=== PATIENT | female | born 1950 | race Caucasian/White ===

== ENCOUNTER → 2016-08-17 | Outpatient (CLI) | payer MEDICARE, OTHER ==
[2016-08-17 12:59] LABS: APPEARANCE,URINE CLEAR; BILIRUBIN,URINE NEGATIVE (NEGATIVE); GLUCOSE, URINE NEGATIVE (NEGATIVE); KETONES,URINE NEGATIVE (NEGATIVE); LEUKOCYTE ESTERASE,URINE NEGATIVE (NEGATIVE); NITRITE,URINE NEGATIVE (NEGATIVE); PROTEIN,URINE NEGATIVE (NEGATIVE); URINE SPECIFIC GRAVITY 1.009; UROBILINOGEN,URINE NEGATIVE mg/dL (<2.0)
[2016-08-17 13:02] LABS: HEMATOCRIT 37.5 % (36.0-47.0); HEMOGLOBIN 11.9 g/dL (12.0-15.5); HGB HCT DIFFERENCE -1.8; MEAN CORPUSCULAR HEMOGLOBIN 26.8 pg (27.0-33.4); MEAN CORPUSCULAR HGB CONC 31.7 g/dL (32.0-36.0); MEAN CORPUSCULAR VOLUME 84 fl (80-97); RED BLOOD COUNT 4.45 10^6/uL (3.72-5.28); RED CELL DISTRIBUTION WIDTH 14.6 % (11.5-14.0); WHITE BLOOD COUNT 11.3 10^3/uL (4.0-10.5)
[2016-08-17 13:22] LABS: ANION GAP 12 (5-19); BLOOD UREA NITROGEN 32 mg/dL (7-20); CALCIUM 10.1 mg/dL (8.4-10.2); CARBON DIOXIDE 31 mmol/L (22-30); CHLORIDE 98 mmol/L (98-107); CREATININE RESULT 1.61 mg/dL (0.52-1.25); GLUCOSE 132 mg/dL (75-110); POTASSIUM 4.6 mmol/L (3.6-5.0); SODIUM 140.7 mmol/L (137-145)
== END ==
LOC: OD 11:52
PROVIDERS: ATTEND Internal Medicine Nephrology
DX: E11.22 Type 2 diabetes mellitus with diabetic chronic kidney disease (principal); N18.3 Chronic kidney disease, stage 3 (moderate); I50.9 Heart failure, unspecified; E87.5 Hyperkalemia
CPT/HCPCS: 36415; 80048; 81001; 85027

== ENCOUNTER → 2016-09-25 | Outpatient (CLI) | payer MEDICARE, OTHER ==
[2016-09-25 10:32] LABS: ANION GAP 17 (5-19); BLOOD UREA NITROGEN 19 mg/dL (7-20); CALCIUM 9.5 mg/dL (8.4-10.2); CARBON DIOXIDE 31 mmol/L (22-30); CHLORIDE 100 mmol/L (98-107); CREATININE RESULT 1.07 mg/dL (0.52-1.25); GLUCOSE 153 mg/dL (75-110); SODIUM 147.6 mmol/L (137-145)
[2016-09-25 10:34] LABS: POTASSIUM 4.4 mmol/L (3.6-5.0)
== END ==
LOC: OD 09:27
PROVIDERS: ATTEND Internal Medicine Nephrology
DX: I50.9 Heart failure, unspecified (principal); N18.3 Chronic kidney disease, stage 3 (moderate); E11.9 Type 2 diabetes mellitus without complications; E87.5 Hyperkalemia
CPT/HCPCS: 36415; 80048

== ENCOUNTER → 2016-09-30 | Outpatient (CLI) | payer MEDICARE, OTHER ==
[2016-09-30 11:31] LABS: ANION GAP 15 (5-19); BLOOD UREA NITROGEN 21 mg/dL (7-20); CALCIUM 9.8 mg/dL (8.4-10.2); CARBON DIOXIDE 34 mmol/L (22-30); CHLORIDE 96 mmol/L (98-107); CREATININE RESULT 1.15 mg/dL (0.52-1.25); GLUCOSE 151 mg/dL (75-110); POTASSIUM 4.3 mmol/L (3.6-5.0); SODIUM 144.6 mmol/L (137-145)
== END ==
LOC: OD 10:34
PROVIDERS: ATTEND Internal Medicine Nephrology
DX: E87.0 Hyperosmolality and hypernatremia (principal)
CPT/HCPCS: 36415; 80048

== ENCOUNTER → 2017-03-09 | Outpatient (CLI) | payer MEDICARE, OTHER ==
[2017-03-09 14:49] LABS: APPEARANCE,URINE CLEAR; BILIRUBIN,URINE NEGATIVE (NEGATIVE); GLUCOSE, URINE NEGATIVE (NEGATIVE); KETONES,URINE NEGATIVE (NEGATIVE); LEUKOCYTE ESTERASE,URINE NEGATIVE (NEGATIVE); NITRITE,URINE NEGATIVE (NEGATIVE); PROTEIN,URINE NEGATIVE (NEGATIVE); URINE SPECIFIC GRAVITY 1.004; UROBILINOGEN,URINE NEGATIVE mg/dL (<2.0)
[2017-03-09 14:50] LABS: HEMATOCRIT 37.7 % (36.0-47.0); HEMOGLOBIN 12.4 g/dL (12.0-15.5); HGB HCT DIFFERENCE -0.5; MEAN CORPUSCULAR HGB CONC 32.7 g/dL (32.0-36.0); MEAN CORPUSCULAR VOLUME 83 fl (80-97); RED BLOOD COUNT 4.57 10^6/uL (3.72-5.28); RED CELL DISTRIBUTION WIDTH 15.3 % (11.5-14.0); WHITE BLOOD COUNT 9.8 10^3/uL (4.0-10.5)
[2017-03-09 15:22] LABS: ANION GAP 12 (5-19); BLOOD UREA NITROGEN 30 mg/dL (7-20); CALCIUM 9.9 mg/dL (8.4-10.2); CARBON DIOXIDE 29 mmol/L (22-30); CHLORIDE 100 mmol/L (98-107); CREATININE RESULT 1.33 mg/dL (0.52-1.25); GLUCOSE 172 mg/dL (75-110); MAGNESIUM 1.7 mg/dL (1.6-2.3); POTASSIUM 4.2 mmol/L (3.6-5.0); SODIUM 140.8 mmol/L (137-145)
== END ==
LOC: OD 13:40
PROVIDERS: ATTEND Internal Medicine Nephrology
DX: I12.9 Hypertensive chronic kidney disease with stage 1 through stage 4 chronic kidney disease, or unspecified chronic kidney disease (principal); N18.3 Chronic kidney disease, stage 3 (moderate); E11.9 Type 2 diabetes mellitus without complications; E87.5 Hyperkalemia
CPT/HCPCS: 36415; 80048; 81001; 83735; 85027

== ENCOUNTER → 2017-07-28 | Outpatient (CLI) | payer MEDICARE, OTHER ==
[2017-07-28 12:54] LABS: HEMATOCRIT 37.2 % (36.0-47.0); HEMOGLOBIN 12.2 g/dL (12.0-15.5); MEAN CORPUSCULAR HEMOGLOBIN 27.4 pg (27.0-33.4); MEAN CORPUSCULAR HGB CONC 32.9 g/dL (32.0-36.0); MEAN CORPUSCULAR VOLUME 83 fl (80-97); PLATELET COUNT 191 10^3/uL (150-450); RED BLOOD COUNT 4.46 10^6/uL (3.72-5.28); RED CELL DISTRIBUTION WIDTH 14.6 % (11.5-14.0); WHITE BLOOD COUNT 11.2 10^3/uL (4.0-10.5)
[2017-07-28 13:14] LABS: ANION GAP 13 (5-19); BLOOD UREA NITROGEN 42 mg/dL (7-20); CALCIUM 9.9 mg/dL (8.4-10.2); CARBON DIOXIDE 31 mmol/L (22-30); CHLORIDE 96 mmol/L (98-107); GLUCOSE 113 mg/dL (75-110); MAGNESIUM 1.5 mg/dL (1.6-2.3); POTASSIUM 4.2 mmol/L (3.6-5.0); SODIUM 139.6 mmol/L (137-145)
== END ==
LOC: OD 11:44
PROVIDERS: ATTEND Internal Medicine Nephrology
DX: N18.3 Chronic kidney disease, stage 3 (moderate) (principal); I50.9 Heart failure, unspecified; E11.9 Type 2 diabetes mellitus without complications; E87.5 Hyperkalemia
CPT/HCPCS: 36415; 80048; 83735; 85027

== ENCOUNTER 2017-08-04 11:07 | Emergency (ER) | payer MEDICARE, OTHER ==
[2017-08-04] MEDS ORDERED: ASPIRIN 81 MG TABLET, CHEWABLE PO ONE (11:10)
[2017-08-04 11:30] LABS: ABSOLUTE BASOPHILS # (AUTO) 0.1 10^3/uL (0.0-0.2); ABSOLUTE EOSINOPHILS # (AUTO) 0.4 10^3/uL (0.0-0.6); ABSOLUTE LYMPHOCYTES (AUTO) 3.6 10^3/uL (0.5-4.7); ABSOLUTE MONOCYTES (AUTO) 0.7 10^3/uL (0.1-1.4); ABSOLUTE NEUT (AUTO) 5.8 10^3/uL (1.7-8.2); BASOPHILS % (AUTO) 0.7 % (0-2); EOSINOPHILS % (AUTO) 3.8 % (0-6); HEMATOCRIT 38.1 % (36.0-47.0); HEMOGLOBIN 12.2 g/dL (12.0-15.5); LYMPHOCYTES % (AUTO) 34.1 % (13-45); MEAN CORPUSCULAR HEMOGLOBIN 27.2 pg (27.0-33.4); MEAN CORPUSCULAR HGB CONC 31.9 g/dL (32.0-36.0); MEAN CORPUSCULAR VOLUME 85 fl (80-97); MONOCYTES % (AUTO) 6.5 % (3-13); PLATELET COUNT 184 10^3/uL (150-450); RED BLOOD COUNT 4.47 10^6/uL (3.72-5.28); RED CELL DISTRIBUTION WIDTH 14.9 % (11.5-14.0); SEGMENTED NEUTROPHILS % (AUTO) 54.9 % (42-78); TOTAL CELLS COUNTED % (AUTO) 100 %; WHITE BLOOD COUNT 10.5 10^3/uL (4.0-10.5)
[2017-08-04 11:47] LABS: ALANINE AMINOTRANSFERASE 19 U/L (9-52); ALBUMIN 4.3 g/dL (3.5-5.0); ALKALINE PHOSPHATASE 100 U/L (38-126); ANION GAP 11 (5-19); ASPARTATE AMINO TRANSFERASE 16 U/L (14-36); BILIRUBIN,DIRECT 0.4 mg/dL (0.0-0.4); BILIRUBIN,TOTAL 0.4 mg/dL (0.2-1.3); BLOOD UREA NITROGEN 28 mg/dL (7-20); CALCIUM 10.1 mg/dL (8.4-10.2); CARBON DIOXIDE 34 mmol/L (22-30); CHLORIDE 99 mmol/L (98-107); CREATINE KINASE 54 U/L (30-135); GLUCOSE 122 mg/dL (75-110); POTASSIUM 4.6 mmol/L (3.6-5.0); SODIUM 143.9 mmol/L (137-145); TOTAL PROTEIN 7.3 g/dL (6.3-8.2)
[2017-08-04 12:01] LABS: TROPONIN I < 0.012 ng/mL
--- NOTE | 2017-08-04 12:05 | RADIOLOGY REPORT (SQ) ---
EXAM DESCRIPTION: CHEST SINGLE VIEW COMPLETED DATE/TIME: 08/04/2017 11:37 am REASON FOR STUDY: chest pain COMPARISON: September 2015 EXAM PARAMETERS: NUMBER OF VIEWS: One view. TECHNIQUE: Single frontal radiographic view of the chest acquired. RADIATION DOSE: NA LIMITATIONS: Patient is slightly rotated on the current study. FINDINGS: LUNGS AND PLEURA: There is ill-defined increased density in the right perihilar region in right lower lung field which may be related to asymmetric overlying soft tissues rather than represen ting a true pneumonic infiltrate. Clinical correlation is recommended however. Remaining lung field s are clear. No pleural effusions are identified. The previously described chronic appearing change s in the lung apices appears stable. MEDIASTINUM AND HILAR STRUCTURES: No masses. Contour normal. HEART AND VASCULAR STRUCTURES: The configuration of the heart mediastinal structures is unchanged. BONES: No acute findings. HARDWARE: None in the chest. OTHER: Some elevation of the left hemidiaphragm is seen. IMPRESSION: Ill-defined increased density in the right perihilar region in the right lower lung fiel d as noted above which may be related to asymmetric overlying soft tissues rather than representing a true pneumonic infiltrate. Clinical correlation is recommended however. Remaining lung fleming are clear. Other findings as noted above. TECHNICAL DOCUMENTATION: JOB ID: [id number] [employer]- All Rights Reserved
[2017-08-04] MEDS ORDERED: IPRATROPIUM/ALBUTEROL 0.5-2.5 MG/3 ML AMPUL NEB ONE (12:11)
[2017-08-04] MEDS ORDERED: LEVOFLOXACIN 500 MG TABLET PO ONE (13:27)
[2017-08-04] MEDS ORDERED: PREDNISONE 20 MG TABLET PO ONE (13:29)
--- NOTE | 2017-08-04 14:15 | ER Document Report ---
ED General - General Chief Complaint: Shortness Of Breath Stated Complaint: CHEST PAIN Time Seen by Provider: 08/04/17 12:11 TRAVEL OUTSIDE OF THE [place] IN LAST 30 DAYS: No - HPI Patient complains to provider of: Shortness of breath and chest pain Notes: Patient coming in for evaluation shortness of breath and chest pain. Patient states chest pain started early this morning right side of the chest no radiation patient states shortness of breath ongoing increasing over the last 3 days. Patient was referred to the ER by lead systems architect Dr. Jair saucedo. Patient states compliant with her medications patient states cough no fevers at home. Patient does have history of COPD is on chronic oxygen therapy states that she continues to wear 2 L at home. Denies any history of having to increase this. Patient states cough is nonproductive. No recent travel no fevers no chills no nausea no vomiting. - Related Data Allergies/Adverse Reactions: DUST Allergy (Uncoded 02/14/15 10:12) GRASS Allergy (Uncoded 02/14/15 10:12) Past Medical History - Social History Smoking Status: Unknown if Ever Smoked Family History: Other - No early cardiac in the family. Patient has suicidal ideation: No Patient has homicidal ideation: No - Past Medical History Cardiac Medical History: Reports: Hx Hypertension Denies: Hx Heart Attack Pulmonary Medical History: Reports: Hx COPD Denies: Hx Asthma Neurological Medical History: Denies: Hx Cerebrovascular Accident, Hx Seizures Endocrine Medical History: Reports: Hx Diabetes Mellitus Type 2 - borderline diabetic Renal/ Medical History: Denies: Hx Peritoneal Dialysis GI Medical History: Reports: Hx Gastroesophageal Reflux Disease. Denies: Hx Hepatitis, Hx Hiatal Hernia, Hx Ulcer Psychiatric Medical History: Reports: Hx Depression Infectious Medical History: Denies: Hx Hepatitis Past Surgical History: Reports: Hx Cholecystectomy, Hx Hysterectomy. Denies: Hx Mastectomy, Hx Open Heart Surgery, Hx Pacemaker - Immunizations Hx Diphtheria, Pertussis, Tetanus Vaccination: - unknown Hx Pneumococcal Vaccination: 06/27/13 Review of Systems - Review of Systems Constitutional: No symptoms reported EENT: No symptoms reported Cardiovascular: Chest pain Respiratory: Cough, Short of breath, Wheezing Gastrointestinal: No symptoms reported Genitourinary: No symptoms reported Female Genitourinary: No symptoms reported Musculoskeletal: No symptoms reported Skin: No symptoms reported Hematologic/Lymphatic: No symptoms reported Neurological/Psychological: No symptoms reported -: Yes All other systems reviewed and negative Physical Exam - Vital signs Vitals: Resp Pulse Ox 17 99 08/04/17 11:24 08/04/17 11:24 Interpretation: Normal - General General appearance: Appears well, Alert - HEENT Head: Normocephalic, Atraumatic Eyes: Normal Pupils: PERRL - Respiratory Respiratory status: No respiratory distress Chest status: Nontender Breath sounds: Rhonchi, Wheezing Chest palpation: Normal - Cardiovascular Rhythm: Regular Heart sounds: Normal auscultation Murmur: No - Abdominal Inspection: Normal Distension: No distension Bowel sounds: Normal Tenderness: Nontender Organomegaly: No organomegaly - Back Back: Normal, Nontender - Extremities General upper extremity: Normal inspection, Nontender, Normal color, Normal ROM , Normal temperature General lower extremity: Normal inspection, Nontender, Normal color, Normal ROM , Normal temperature, Normal weight bearing. No: Mikey's sign - Neurological Neuro grossly intact: Yes Cognition: Normal Orientation: AAOx4 Sarah Coma Scale Eye Opening: Spontaneous Sarah Coma Scale Verbal: Oriented Sarah Coma Scale Motor: Obeys Commands Sarah Coma Scale Total: 15 Speech: Normal Motor strength normal: LUE, RUE, LLE, RLE Sensory: Normal - Psychological Associated symptoms: Normal affect, Normal mood - Skin Skin Temperature: Warm Skin Moisture: Dry Skin Color: Normal Course - Re-evaluation Re-evalutation: 08/04/17 16:05 Chest x-ray shows possible pneumonia on the right side which would be congruent the patient's right-sided chest pain. Will start patient on Levaquin. Also will start patient on prednisone was patient's was wheezing. Wheezing has improved. No signs of hypoxia with patient on her home dose of oxygen. Patient was to be in good candidate for outpatient treatment of her pneumonia. Patient is encouraged to return to the ER symptoms worsen or follow-up with her PCP. - Vital Signs Vital signs: Temp Pulse Resp BP Pulse Ox 15 90/46 L 98 08/04/17 14:35 08/04/17 14:35 08/04/17 14:35 - Laboratory Result Diagrams: 08/04/17 10:55 08/04/17 10:55 Laboratory results interpreted by me: 08/04/17 08/04/17 10:55 10:55 MCHC 31.9 L RDW 14.9 H Carbon Dioxide 34 H BUN 28 H Creatinine 1.34 H Est GFR ( Amer) 47 L Est GFR (Non-Af Amer) 39 L Glucose 122 H Discharge - Discharge Clinical Impression: PNA (pneumonia) Qualifiers: Pneumonia type: due to unspecified organism Laterality: right Lung location: middle lobe of lung Qualified Code(s): J18.1 - Lobar pneumonia, unspecified organism COPD (chronic obstructive pulmonary disease) Qualifiers: COPD type: unspecified COPD Qualified Code(s): J44.9 - Chronic obstructive pulmonary disease, unspecified Condition: Good Disposition: HOME, SELF-CARE Instructions: Chronic Obstructive Lung Disease ([facility]), Pneumonia ([facility]) Additional Instructions: Your laboratory studies today chest x-ray consistent with pneumonia. There is no signs of any cardiac ischemia or cardiac damage. Please continue to wear oxygen at home. Please take antibiotics as prescribed continue your nebulizer treatments and/or use of your inhalers. I will place her on some oral steroids for the next few days. Return to ER symptoms worsen follow-up with your primary care physician. Prescriptions: Levofloxacin 500 mg PO DAILY 9 Days tablet Prednisone [Deltasone 20 mg Tablet] 3 tab PO DAILY 5 Days tablet Referrals: MICHEL SLATER NP [Primary Care Provider] - Follow up as needed
[2017-08-04 14:39] VITALS: BP 90/46
--- NOTE | 2017-08-04 22:36 | EKG REPORT ---
SEVERITY:- NORMAL ECG - SINUS RHYTHM : Confirmed by: Meño Anderson 04-Aug-2017 22:35:40
== END 2017-08-04 14:39 | disposition home or self-care (01) ==
LOC: ER 11:07
DX: J44.0 Chronic obstructive pulmonary disease with (acute) lower respiratory infection (principal); J18.1 Lobar pneumonia, unspecified organism; Z99.81 Dependence on supplemental oxygen; Z91.048 Other nonmedicinal substance allergy status; I10 Essential (primary) hypertension
CPT/HCPCS: 93005; 94640; 99285; 36415; 82553; 82550; 85025; 80053; 84484; 83880; 71045; 93010; A9270 ×3; J7512; J7620

== ENCOUNTER → 2018-09-26 | Outpatient (CLI) | payer MEDICARE, OTHER ==
[2018-09-26 11:31] LABS: ABSOLUTE BASOPHILS # (AUTO) 0.1 10^3/uL (0.0-0.2); ABSOLUTE EOSINOPHILS # (AUTO) 0.3 10^3/uL (0.0-0.6); ABSOLUTE LYMPHOCYTES (AUTO) 3.1 10^3/uL (0.5-4.7); ABSOLUTE MONOCYTES (AUTO) 0.8 10^3/uL (0.1-1.4); ABSOLUTE NEUT (AUTO) 8.6 10^3/uL (1.7-8.2); BASOPHILS % (AUTO) 0.7 % (0-2); EOSINOPHILS % (AUTO) 2.6 % (0-6); HEMATOCRIT 37.9 % (36.0-47.0); HEMOGLOBIN 12.1 g/dL (12.0-15.5); LYMPHOCYTES % (AUTO) 24.1 % (13-45); MEAN CORPUSCULAR HEMOGLOBIN 27.3 pg (27.0-33.4); MEAN CORPUSCULAR VOLUME 85 fl (80-97); MONOCYTES % (AUTO) 5.9 % (3-13); PLATELET COUNT 195 10^3/uL (150-450); RED BLOOD COUNT 4.44 10^6/uL (3.72-5.28); SEGMENTED NEUTROPHILS % (AUTO) 66.7 % (42-78); TOTAL CELLS COUNTED % (AUTO) 100 %; WHITE BLOOD COUNT 12.9 10^3/uL (4.0-10.5)
[2018-09-26 11:52] LABS: ANION GAP 10 (5-19); BLOOD UREA NITROGEN 26 mg/dL (7-20); CALCIUM 9.9 mg/dL (8.4-10.2); CARBON DIOXIDE 32 mmol/L (22-30); CHLORIDE 99 mmol/L (98-107); GLUCOSE 121 mg/dL (75-110); PHOSPHORUS 3.7 mg/dL (2.5-4.5); POTASSIUM 4.2 mmol/L (3.6-5.0)
[2018-09-26 12:27] LABS: APPEARANCE,URINE SLIGHTLY-CLOUDY; BILIRUBIN,URINE NEGATIVE (NEGATIVE); COLOR,URINE YELLOW; GLUCOSE, URINE NEGATIVE (NEGATIVE); KETONES,URINE NEGATIVE (NEGATIVE); LEUKOCYTE ESTERASE,URINE TRACE (NEGATIVE); NITRITE,URINE NEGATIVE (NEGATIVE); PROTEIN,URINE NEGATIVE (NEGATIVE); URINE SPECIFIC GRAVITY 1.019
== END ==
LOC: OD 10:57
PROVIDERS: ATTEND Internal Medicine Nephrology
DX: N18.3 Chronic kidney disease, stage 3 (moderate) (principal); I50.9 Heart failure, unspecified; E11.9 Type 2 diabetes mellitus without complications; E87.5 Hyperkalemia
CPT/HCPCS: 36415; 80048; 81001; 83735; 83970; 84100; 85025

== ENCOUNTER → 2018-10-25 | Outpatient (CLI) | payer MEDICARE, OTHER ==
[2018-10-25 14:20] LABS: ABSOLUTE BASOPHILS # (AUTO) 0.1 10^3/uL (0.0-0.2); ABSOLUTE EOSINOPHILS # (AUTO) 0.3 10^3/uL (0.0-0.6); ABSOLUTE LYMPHOCYTES (AUTO) 2.5 10^3/uL (0.5-4.7); ABSOLUTE MONOCYTES (AUTO) 0.5 10^3/uL (0.1-1.4); ABSOLUTE NEUT (AUTO) 4.9 10^3/uL (1.7-8.2); BASOPHILS % (AUTO) 0.9 % (0-2); EOSINOPHILS % (AUTO) 4.1 % (0-6); HEMATOCRIT 37.5 % (36.0-47.0); HEMOGLOBIN 11.8 g/dL (12.0-15.5); LYMPHOCYTES % (AUTO) 29.7 % (13-45); MEAN CORPUSCULAR HGB CONC 31.6 g/dL (32.0-36.0); MEAN CORPUSCULAR VOLUME 86 fl (80-97); MONOCYTES % (AUTO) 6.5 % (3-13); PLATELET COUNT 181 10^3/uL (150-450); RED BLOOD COUNT 4.38 10^6/uL (3.72-5.28); RED CELL DISTRIBUTION WIDTH 15.1 % (11.5-14.0); SEGMENTED NEUTROPHILS % (AUTO) 58.8 % (42-78); TOTAL CELLS COUNTED % (AUTO) 100 %; WHITE BLOOD COUNT 8.4 10^3/uL (4.0-10.5)
[2018-10-25 14:30] LABS: APPEARANCE,URINE SLIGHTLY-CLOUDY; BILIRUBIN,URINE NEGATIVE (NEGATIVE); COLOR,URINE YELLOW; GLUCOSE, URINE NEGATIVE (NEGATIVE); KETONES,URINE NEGATIVE (NEGATIVE); LEUKOCYTE ESTERASE,URINE NEGATIVE (NEGATIVE); NITRITE,URINE NEGATIVE (NEGATIVE); PROTEIN,URINE NEGATIVE (NEGATIVE); URINE SPECIFIC GRAVITY 1.016
[2018-10-25 14:39] LABS: ANION GAP 8 (5-19); BLOOD UREA NITROGEN 27 mg/dL (7-20); CALCIUM 9.5 mg/dL (8.4-10.2); CARBON DIOXIDE 33 mmol/L (22-30); CHLORIDE 102 mmol/L (98-107); GLUCOSE 95 mg/dL (75-110); PHOSPHORUS 3.9 mg/dL (2.5-4.5); POTASSIUM 5.2 mmol/L (3.6-5.0); SODIUM 143.3 mmol/L (137-145)
== END ==
LOC: OD 13:39
PROVIDERS: ATTEND Internal Medicine Nephrology
DX: N18.3 Chronic kidney disease, stage 3 (moderate) (principal); I50.9 Heart failure, unspecified; E11.9 Type 2 diabetes mellitus without complications; E87.5 Hyperkalemia
CPT/HCPCS: 36415; 80048; 81001; 83735; 83970; 84100; 85025

== ENCOUNTER 2019-03-28 16:01 | Inpatient (IN) | payer MEDICARE, OTHER ==
[2019-03-28] MEDS ORDERED: IPRATROPIUM/ALBUTEROL 0.5-2.5 MG/3 ML AMPUL NEB ONE ×2 (16:05→16:18)
[2019-03-28] MEDS ORDERED: ALBUTEROL SULFATE 0.083% NEB 2.5 MG/3 ML AMPUL NEB ONE ×2 (16:15→16:18)
--- NOTE | 2019-03-28 16:16 | ER Document Report ---
ED Medical Screen (RME) - General Chief Complaint: Breathing Difficulty Stated Complaint: DIFFICULTY BREATHING Time Seen by Provider: 03/28/19 16:08 Primary Care Provider: Bart CHAPA MD [Primary Care Provider] - Follow up as needed Mode of Arrival: Wheelchair Information source: Patient Notes: 68-year-old female presented to ED for complaint of difficulty breathing x2 weeks. She states she had a neb treatment just before coming to the emergency room at her doctor's office. When she got here she was at 77% O2 sat. Her oxygen tank was turned off. When we got her back on to her oxygen she has come up to 95% on 3 L. She is normally on 3 L. When we take her back down to 2 L she desats back down to 91-92. We did give her a DuoNeb treatment in the em ergency room pit area and now we are going to give her a albuterol neb. I have greeted and performed a rapid initial assessment of this patient. A comprehensive ED assessment and evaluation of the patient, analysis of test results and completion of medical decision making process will be conducted by an additional ED providers. TRAVEL OUTSIDE OF THE [place] IN LAST 30 DAYS: No - Related Data Allergies/Adverse Reactions: DUST Allergy (Uncoded 03/28/19 16:08) GRASS Allergy (Uncoded 03/28/19 16:08) Past Medical History - Past Medical History Cardiac Medical History: Reports: Hx Hypertension Denies: Hx Heart Attack Pulmonary Medical History: Reports: Hx COPD Denies: Hx Asthma Neurological Medical History: Denies: Hx Cerebrovascular Accident, Hx Seizures Endocrine Medical History: Reports: Hx Diabetes Mellitus Type 2 - borderline diabetic Renal/ Medical History: Denies: Hx Peritoneal Dialysis GI Medical History: Reports: Hx Gastroesophageal Reflux Disease. Denies: Hx Hepatitis, Hx Hiatal Hernia, Hx Ulcer Psychiatric Medical History: Reports: Hx Depression Infectious Medical History: Denies: Hx Hepatitis Past Surgical History: Reports: Hx Cholecystectomy, Hx Hysterectomy. Denies: Hx Mastectomy, Hx Open Heart Surgery, Hx Pacemaker - Immunizations Hx Diphtheria, Pertussis, Tetanus Vaccination: - unknown Doctor's Discharge - Discharge Referrals: Bart CHAPA MD [Primary Care Provider] - Follow up as needed
[2019-03-28 16:58] LABS: ARTERIAL BLOOD FIO2 2L; ARTERIAL BLOOD H2CO3 1.61 mmol/L (1.05-1.35); ARTERIAL BLOOD HCO3 34.8 mmol/L (20-24); ARTERIAL BLOOD O2 SATURATION 91.7 % (94-98); ARTERIAL BLOOD PCO2 53.6 mmHg (35-45); ARTERIAL BLOOD PH 7.43 (7.35-7.45); ARTERIAL BLOOD PO2 61.4 mmHg (80-100); ARTERIAL BLOOD TOTAL CO2 36.4 mmol/L (21-25)
[2019-03-28 17:02] LABS: ABSOLUTE EOSINOPHILS # (AUTO) 0.2 10^3/uL (0.0-0.6); ABSOLUTE LYMPHOCYTES (AUTO) 2.5 10^3/uL (0.5-4.7); ABSOLUTE NEUT (AUTO) 10.4 10^3/uL (1.7-8.2); BASOPHILS % (AUTO) 0.3 % (0-2); EOSINOPHILS % (AUTO) 1.2 % (0-6); HEMATOCRIT 34.7 % (36.0-47.0); HEMOGLOBIN 10.9 g/dL (12.0-15.5); LYMPHOCYTES % (AUTO) 17.8 % (13-45); MEAN CORPUSCULAR HGB CONC 31.4 g/dL (32.0-36.0); MEAN CORPUSCULAR VOLUME 86 fl (80-97); MONOCYTES % (AUTO) 7.2 % (3-13); PLATELET COUNT 262 10^3/uL (150-450); RED BLOOD COUNT 4.03 10^6/uL (3.72-5.28); RED CELL DISTRIBUTION WIDTH 14.2 % (11.5-14.0); SEGMENTED NEUTROPHILS % (AUTO) 73.5 % (42-78); TOTAL CELLS COUNTED % (AUTO) 100 %; WHITE BLOOD COUNT 14.2 10^3/uL (4.0-10.5)
--- NOTE | 2019-03-28 17:06 | RADIOLOGY REPORT (SQ) ---
EXAM DESCRIPTION: CHEST SINGLE VIEW COMPLETED DATE/TIME: 03/28/2019 4:58 pm REASON FOR STUDY: #1 SYNCOPE COMPARISON: 10/10/2015 NUMBER OF VIEWS: One view. TECHNIQUE: Single frontal radiographic view of the chest acquired. LIMITATIONS: None. FINDINGS: LUNGS AND PLEURA: There is hyperexpansion. There chronic pleural and parenchymal changes in the lung apices. There is bilateral basilar interstitial airspace disease along with perihilar in filtrate. MEDIASTINUM AND HILAR STRUCTURES: No masses. Contour normal. HEART AND VASCULAR STRUCTURES: Heart size is stable with central vascular congestion. BONES: No acute findings. HARDWARE: None in the chest. OTHER: No other significant finding. IMPRESSION: Probable vascular congestion in the setting of COPD. Interstitial pneumonitis is though t to be less likely. TECHNICAL DOCUMENTATION: JOB ID: [id number] [employer]- All Rights Reserved Reading location - IP/workstation name: [email or web address]
[2019-03-28] MEDS ORDERED: AZITHROMYCIN INJ 500 MG VIAL IV ONE (17:14)
[2019-03-28] MEDS ORDERED: CEFTRIAXONE 1 GM/D5W RTU 1 GM/50 ML RTUPB IV ONE (17:14)
[2019-03-28 17:29] LABS: ALBUMIN 3.4 g/dL (3.5-5.0); ALKALINE PHOSPHATASE 151 U/L (38-126); ANION GAP 9 (5-19); ASPARTATE AMINO TRANSFERASE 29 U/L (14-36); BILIRUBIN,DIRECT 0.4 mg/dL (0.0-0.4); BILIRUBIN,TOTAL 0.5 mg/dL (0.2-1.3); BLOOD UREA NITROGEN 24 mg/dL (7-20); CALCIUM 8.9 mg/dL (8.4-10.2); CARBON DIOXIDE 37 mmol/L (22-30); CHLORIDE 96 mmol/L (98-107); GLUCOSE 200 mg/dL (75-110); TOTAL PROTEIN 6.7 g/dL (6.3-8.2)
[2019-03-28 17:37] LABS: POTASSIUM 2.8 mmol/L (3.6-5.0)
[2019-03-28 17:38] LABS: NT PRO BNP 164 pg/mL (5-900)
[2019-03-28 17:39] LABS: TROPONIN I < 0.012 ng/mL
[2019-03-28] MEDS ORDERED: NORMAL SALINE 1000 ML 1,000 ML with POTASSIUM CHLORIDE 40 MEQ IV ONE ×2 (17:56)
--- NOTE | 2019-03-28 17:56 | ER Document Report ---
ED General - General Chief Complaint: Shortness Of Breath Stated Complaint: DIFFICULTY BREATHING Time Seen by Provider: 03/28/19 16:08 Primary Care Provider: Bart CHAPA MD [Primary Care Provider] - Follow up as needed Mode of Arrival: Wheelchair TRAVEL OUTSIDE OF THE [place] IN LAST 30 DAYS: No - HPI Notes: This is a 68-year-old female who presents today with a complaint of cough, congestion, trouble breathing for the past 1 to 2 weeks. Patient states that she is currently on antibiotics for urinary tract infection. She denies any fever or chills. She denies any chest pain. She describes a cough that is productive of yellow to green sputum. Describes her symptoms as moderate to severe. Symptoms worse with exertion. - Related Data Allergies/Adverse Reactions: DUST Allergy (Uncoded 03/28/19 16:08) GRASS Allergy (Uncoded 03/28/19 16:08) Past Medical History - General Information source: Patient - Social History Smoking Status: Former Smoker Chew tobacco use (# tins/day): No Frequency of alcohol use: None Family History: Other - No early cardiac in the family. Patient has suicidal ideation: No Patient has homicidal ideation: No - Past Medical History Cardiac Medical History: Reports: Hx Hypertension Denies: Hx Heart Attack Pulmonary Medical History: Reports: Hx COPD Denies: Hx Asthma Neurological Medical History: Denies: Hx Cerebrovascular Accident, Hx Seizures Endocrine Medical History: Reports: Hx Diabetes Mellitus Type 2 - borderline diabetic Renal/ Medical History: Denies: Hx Peritoneal Dialysis GI Medical History: Reports: Hx Gastroesophageal Reflux Disease. Denies: Hx Hepatitis, Hx Hiatal Hernia, Hx Ulcer Psychiatric Medical History: Reports: Hx Depression Infectious Medical History: Denies: Hx Hepatitis Past Surgical History: Reports: Hx Cholecystectomy, Hx Hysterectomy. Denies: Hx Mastectomy, Hx Open Heart Surgery, Hx Pacemaker - Immunizations Hx Diphtheria, Pertussis, Tetanus Vaccination: - unknown Hx Pneumococcal Vaccination: 06/27/13 Review of Systems - Review of Systems Cardiovascular: denies: Chest pain, Palpitations Respiratory: Cough, Short of breath, Sputum, Wheezing Gastrointestinal: denies: Abdominal pain, Diarrhea -: Yes All other systems reviewed and negative Physical Exam - Vital signs Vitals: Resp Pulse Ox 19 94 03/28/19 16:27 03/28/19 16:27 - General In distress: Moderate - Respiratory Respiratory status: Respiratory distress Chest status: Nontender, Accessory muscle use Breath sounds: Productive cough, Rhonchi, Wheezing Chest palpation: Normal - Cardiovascular Rhythm: Regular Heart sounds: Normal auscultation Murmur: No - Abdominal Inspection: Normal Distension: No distension Bowel sounds: Normal Tenderness: Nontender Organomegaly: No organomegaly - Extremities General upper extremity: Normal inspection, Nontender, Normal color, Normal ROM, Normal temperature General lower extremity: Normal inspection, Nontender, Edema - There is minimal peripheral edema., Normal color, Normal temperature. No: Mikey's sign - Neurological Neuro grossly intact: Yes Cognition: Normal Orientation: AAOx4 [place] Coma Scale Eye Opening: Spontaneous [place] Coma Scale Verbal: Oriented Sarah Coma Scale Motor: Obeys Commands [place] Coma Scale Total: 15 Speech: Normal Motor strength normal: LUE, RUE, LLE, RLE Sensory: Normal - Psychological Associated symptoms: Normal affect, Normal mood - Skin Skin Temperature: Warm Skin Moisture: Dry Skin Color: Normal Course - Re-evaluation Re-evalutation: 03/28/19 17:53 Differential diagnosis includes pneumonia versus COPD exacerbation versus less likely CHF. Will check a lactate to rule out sepsis. Patient denies any history of distress. Will put her on BiPAP. EKG shows normal sinus rhythm at 96 bpm. Normal axis. No acute injury pattern. 03/28/19 19:40 Patient is doing much better. Patient's care discussed with Dr. Ramirez. Will admit. - Vital Signs Vital signs: Temp Pulse Resp BP Pulse Ox 99 17 104/68 96 03/28/19 16:31 03/28/19 18:01 03/28/19 18:01 03/28/19 18:01 - Laboratory Result Diagrams: 03/28/19 16:40 03/28/19 16:40 Laboratory results interpreted by me: 03/28/19 03/28/19 03/28/19 16:31 16:40 16:40 WBC 14.2 H Hgb 10.9 L Hct 34.7 L MCHC 31.4 L RDW 14.2 H Absolute Neuts (auto) 10.4 H Carbonic Acid 1.61 H ABG pCO2 53.6 H ABG pO2 61.4 L ABG HCO3 34.8 H ABG Total CO2 36.4 H ABG O2 Saturation 91.7 L Potassium 2.8 L* Chloride 96 L Carbon Dioxide 37 H BUN 24 H Creatinine 1.66 H Est GFR ( Amer) 37 L Est GFR (MDRD) Non-Af 31 L Glucose 200 H Alkaline Phosphatase 151 H Albumin 3.4 L Critical Care Note - Critical Care Note Total time excluding time spent on procedures (mins): 45 Comments: Critical care for management of respiratory distress Discharge - Discharge Clinical Impression: Pneumonia, Acute respiratory distress, Hypokalemia Condition: Stable Disposition: ADMITTED INPATIENT Admitting Provider: James (Hospitalist) Unit Admitted: Medical Floor Referrals: Bart CHAPA MD [Primary Care Provider] - Follow up as needed
[2019-03-28] MEDS ORDERED: POTASSIUM CHLORIDE 10 MEQ CAPSULE.ER PO ONE (17:57)
[2019-03-28] MEDS ORDERED: POTASSI CL 40 MEQ/NS 1L 1,000 ML IV PRN ×2 (18:23→19:00)
--- NOTE | 2019-03-28 19:53 | EKG REPORT ---
SEVERITY:- ABNORMAL ECG - SINUS RHYTHM PROBABLE LEFT ATRIAL ABNORMALITY BORDERLINE T ABNORMALITIES, ANT-LAT LEADS BORDERLINE PROLONGED QT INTERVAL : Confirmed by: Mary Merino MD 28-Mar-2019 19:52:48
[2019-03-28] MEDS ORDERED: TUBERCULIN,PURIF.PROT.DERIV. 5 TU/0.1 ML TEST 1 ML VIAL ID ONE ×2 (20:06→22:00)
[2019-03-28] MEDS ORDERED: ACETAMINOPHEN 325 MG TABLET PO PRN (20:06)
[2019-03-28] MEDS ORDERED: GUAIFENESIN SYRP 200 MG/10 ML UDC PO PRN (20:06)
[2019-03-28] MEDS ORDERED: MAG HYDROX/AL HYDROX/SIMETH SUSP 30 ML UDCUP PO PRN (20:16)
[2019-03-28] MEDS ORDERED: MAGNESIUM HYDROXIDE SUSP 30 ML UDCUP PO PRN (20:16)
[2019-03-28] MEDS ORDERED: HYDRALAZINE HCL INJ/PF 20 MG/1 ML SDV IV PRN (20:16)
[2019-03-28] MEDS ORDERED: NALBUPHINE HCL INJ 10 MG/1 ML AMPULE IV PRN ×3 (20:18→20:46)
[2019-03-28] MEDS ORDERED: NITROGLYCERIN 0.4 MG/TAB 25 TAB/BOTTLE SL PRN (20:18)
[2019-03-28] MEDS ORDERED: DEXTROSE 50%-WATER 25 GM/50 ML DISP.SYRIN IV PRN ×2 (20:19)
[2019-03-28] MEDS ORDERED: GLUCAGON,HUMAN RECOMB 1 MG INJ IM PRN (20:19)
[2019-03-28] MEDS ORDERED: DEXTROSE 40% GEL 15 GM TUBE PO PRN ×2 (20:19)
[2019-03-28] MEDS: POTASSI CL 40 MEQ/NS 1L 1,000 ML IV PRN (21:06)
[2019-03-28 21:46] LABS: FREE T3 3.26 pg/mL (2.77-5.27); FREE T4 (FREE THYROXINE) 1.45 ng/dL (0.78-2.19)
[2019-03-28 22:08] LABS: CREATINE KINASE MB 1.92 ng/mL (<4.55); NT PRO BNP 177 pg/mL (5-900)
[2019-03-28 22:12] LABS: TROPONIN I < 0.012 ng/mL
[2019-03-28] MEDS: METHYLPREDNISOLONE INJ 40 MG/1 ML SDV IV SCH (23:23)
[2019-03-28] MEDS: HEPARIN SOD (PORCINE) 5,000 UNIT/ML 1 ML VIAL SUBCUT SCH (23:23)
[2019-03-28] MEDS: METOCLOPRAMIDE HCL 10 MG TABLET PO SCH (23:23)
[2019-03-28] MEDS: SUCRALFATE 1 GM TABLET PO SCH (23:24)
[2019-03-28] MEDS: INSULIN REG, HUMAN 100 UNIT/ML 3 ML VIAL (PYX) SUBCUT SCH (23:26)
--- NOTE | 2019-03-29 00:03 | PDOC H&P ---
History of Present Illness Admission Date/PCP: 03/28/2019 19:25 Bart CHAPA MD Patient complains of: Dyspnea History of Present Illness: DANTE BOND is a 68 year old female who presented to the emergency room with a 2-week history of dyspnea. She admits gradually worsening dyspnea accompanied by a cough productive of yellow to green mucus in moderate amounts for the last 2 weeks. Her dyspnea has become moderately severe today and she became very hypoxic when traveling to her doctor's office without the support of her usual oxygen at 3 L/min per nasal cannula. Her O2 sat had dropped to 77% by the time she was seen in her physician's office where she was treated with a medications via nebulizer, with modest improvement, and was then sent to the emergency room for further evaluation and treatment. She admits that her dyspnea was markedly worsened by activity or exertion. She denies other associated or accompanying signs and symptoms. She admits prior similar episodes related to her COPD and has not identified any aggravating or ameliorating factors for her dyspnea. In the emergency room she was initially hypoxic but her O2 sat improved with placing her back on 3 L of oxygen for per nasal cannula but then her respiratory status worsened and she required BiPAP respiratory support. Chest x-ray showed no airspace infiltrate but did suggest mild vascular congestion or a possible interstitial infiltrate. She was started on IV antibiotics with Rocephin and Zithromax and subsequently admitted to the hospital on the pneumonia protocol. Past Medical History Cardiac Medical History: Reports: Coronary Artery Disease - History of angina: Using as needed sublingual nitroglycerin for control, Hypertension Denies: Atrial Fibrillation, Congestive Heart Failure, Myocardial Infarction Pulmonary Medical History: Reports: Chronic Obstructive Pulmonary Disease (COPD) - Oxygen dependent on continuous 3 L/min via nasal cannula at home, Respiratory Failure Denies: Asthma EENT Medical History: Denies: Cataracts, Ears - Hearing aids Neurological Medical History: Denies: Hemorrhagic CVA, Ischemic CVA, Seizures Endocrine Medical History: Reports: Diabetes Mellitus Type 2 - borderline diabetic Denies: Diabetes Mellitus Type 1, Hyperthyroidism, Hypothyroidism Renal/ Medical History: Reports: Chronic Kidney Disease, Other - Frequent UTIs having finished a course of Levaquin for a UTI 3 days ago. Denies: Nephrolithiasis Malignancy Medical History: Reports: None GI Medical History: Reports: Gastroesophageal Reflux Disease Denies: Cirrhosis, Crohn's Disease, Hepatitis, Hiatal Hernia, Ulcerative Colitis Musculoskeltal Medical History: Denies: Arthritis, Gout Skin Medical History: Denies: Eczema, Psoriasis Psychiatric Medical History: Reports: Depression, Tobacco Dependency Denies: Alcohol Dependency, Substance Abuse Traumatic Medical History: Reports: None Hematology: Reports: Anemia Denies: Bleeding Tendencies Infectious Medical History: Reports: None Past Surgical History Past Surgical History: Reports: Cholecystectomy, Hysterectomy Social History Information Source: Patient Lives with: Family Smoking Status: Former Smoker Frequency of Alcohol Use: None Hx Recreational Drug Use: No Drugs: None Hx Prescription Drug Abuse: No - Advance Directive Resuscitation Status: Full Code Surrogate healthcare decision maker:: Jacob Méndez Family History Family History: Hypertension. denies: CAD - No early cardiac in the family., COPD, DM, Malignancy Parental Family History Reviewed: Yes Children Family History Reviewed: No Sibling(s) Family History Reviewed.: Yes Medication/Allergy Home Medications: Omeprazole [Prilosec 20 mg Capsule] 20 mg PO DAILY 01/17/12 Tiotropium Moore [Spiriva Handihaler 18 mcg/dose (30 Dose)] 1 puff IH DAILY 01/21/12 Calcium Carbonate/Vitamin D3 [Calcium 500-Vit D3 400 Tablet] 1 tab PO BID 11/13/14 Carboxymethylcellulose Sodium [Refresh Plus] 1 each OP BID PRN 11/13/14 Diltiazem HCl [Diltiazem 24Hr Cd] 420 mg PO DAILY 11/13/14 Fluticasone/Salmeterol [Advair 250-50 Diskus 28 dose] 1 inh IH DAILY 11/13/14 Loratadine [Claritin] 10 mg PO DAILY 11/13/14 Albuterol Sulfate [Ventolin 0.042% Neb 1.25 mg/3 mL Ampul] 1 inh IH Q4H PRN 11/14/14 Cyclobenzaprine HCl [Flexeril 10 mg Tablet] 10 mg PO PRN PRN 11/14/14 Vit,Calc76/Iron/Folic [Prenatabs Rx Tablet] 1 each PO DAILY 11/14/14 Aspirin [Aspirin 81 mg Chewable Tablet] 81 mg PO DAILY 02/14/15 Besifloxacin HCl [Besivance 0.6% Oph Susp 5 ml] 1 drop OP ASDIR PRN 02/14/15 Difluprednate [Durezol] 1 drop OP ASDIR PRN 02/14/15 Fiber Capsule 2 tab PO BID 02/14/15 Fluoxetine HCl 20 mg PO DAILY 02/14/15 Furosemide [Lasix 20 mg Tablet] 20 mg PO BID 02/14/15 Glyburide [Diabeta 2.5 mg Tablet] 2.5 mg PO BID 02/14/15 Losartan Potassium [Cozaar 100 mg Tablet] 100 mg PO DAILY 02/14/15 Meclizine HCl 25 mg PO TID 02/14/15 Nepafenac [Ilevro] 1 drop OP ASDIR PRN 02/14/15 Nitroglycerin 0.4 mg SL PRN PRN 02/14/15 Olopatadine HCl [Pataday] 2.5 ml OP DAILY 02/14/15 Potassium Chloride 10 meq PO DAILY 02/14/15 Difluprednate [Durezol] 1 drop OD DAILY 03/11/15 Nepafenac [Ilevro] 1 drop OD DAILY 03/11/15 Levofloxacin 500 mg PO DAILY 9 Days tablet 08/04/17 Prednisone [Deltasone 20 mg Tablet] 3 tab PO DAILY 5 Days tablet 08/04/17 Allergies/Adverse Reactions: DUST Allergy (Uncoded 03/28/19 16:08) GRASS Allergy (Uncoded 03/28/19 16:08) Review of Systems Constitutional: ABSENT: anorexia, chills, fever(s) Eyes: ABSENT: visual disturbances, other - Eye pain Ears: ABSENT: hearing changes, other - Ear pain Nose, Mouth, and Throat: ABSENT: mouth pain, sore throat Cardiovascular: PRESENT: dyspnea on exertion. ABSENT: chest pain, edema, orthropnea, palpitations Respiratory: PRESENT: as per HPI, cough, dyspnea, sputum Gastrointestinal: ABSENT: abdominal pain, constipation, diarrhea, nausea, vomiting Genitourinary: PRESENT: other - Recent UTI treated with Levaquin. ABSENT: dysuria, hematuria Musculoskeletal: ABSENT: back pain, joint swelling, muscle weakness Integumentary: ABSENT: pruritus, rash Neurological: ABSENT: confusion, convulsions, focal weakness, memory loss, syncope Psychiatric: ABSENT: anxiety, depression Endocrine: ABSENT: cold intolerance, heat intolerance Hematologic/Lymphatic: ABSENT: easy bleeding, easy bruising Allergic/Immunologic: PRESENT: seasonal rhinorrhea Physical Exam Vital Signs: Temp Pulse Resp BP Pulse Ox 99 17 104/68 96 03/28/19 16:31 03/28/19 18:01 03/28/19 18:01 03/28/19 18:01 Intake & Output 03/26/19 03/27/19 03/28/19 23:59 23:59 23:59 Intake Total 50 Balance 50 General appearance: PRESENT: no acute distress, cooperative, obese, other - On supplemental oxygen at the time my evaluation Head exam: PRESENT: atraumatic, normocephalic Eye exam: PRESENT: conjunctiva pink. ABSENT: conjunctival injection, scleral icterus Ear exam: PRESENT: normal external ear exam. ABSENT: bleeding, drainage Mouth exam: PRESENT: dry mucosa, neck supple Neck exam: ABSENT: thyromegaly, tracheal deviation Respiratory exam: PRESENT: decreased breath sounds - Moderately decreased breath sounds throughout all fleming consistent with moderate to severe COPD, prolonged expiratory phas - Moderately prolonged expiratory phase in all fleming, symmet rical, wheezes - Mild expiratory wheezes present throughout all fleming. ABSENT: rales, rhonchi Cardiovascular exam: PRESENT: RRR. ABSENT: clicks, gallop, rubs Pulses: PRESENT: normal radial pulses, normal dorsalis pedis pul Vascular exam: PRESENT: normal capillary refill. ABSENT: pallor GI/Abdominal exam: PRESENT: normal bowel sounds, soft Rectal exam: PRESENT: deferred Extremities exam: ABSENT: joint swelling, pedal edema Musculoskeletal exam: ABSENT: deformity, dislocation Neurological exam: PRESENT: alert, oriented to person, oriented to place, oriented to time, oriented to situation, CN II-XII grossly intact. ABSENT: motor sensory deficit Psychiatric exam: PRESENT: appropriate affect, normal mood Skin exam: PRESENT: dry, intact, warm. ABSENT: jaundice, rash, urticaria Results Laboratory Results: 03/28/19 16:40 03/28/19 16:40 03/28/19 03/28/19 03/28/19 16:31 16:40 16:40 WBC 14.2 H RBC 4.03 Hgb 10.9 L Hct 34.7 L MCV 86 MCH 27.0 MCHC 31.4 L RDW 14.2 H Plt Count 262 Seg Neutrophils % 73.5 Carbonic Acid 1.61 H HCO3/H2CO3 Ratio 21:1 ABG pH 7.43 ABG pCO2 53.6 H ABG pO2 61.4 L ABG HCO3 34.8 H ABG O2 Saturation 91.7 L ABG Base Excess 9.0 FiO2 2L Sodium 141.7 Potassium 2.8 L* Chloride 96 L Carbon Dioxide 37 H Anion Gap 9 BUN 24 H Creatinine 1.66 H Est GFR ( Amer) 37 L Glucose 200 H Lactic Acid Calcium 8.9 Total Bilirubin 0.5 AST 29 Alkaline Phosphatase 151 H Total Protein 6.7 Albumin 3.4 L 03/28/19 16:40 WBC RBC Hgb Hct MCV MCH MCHC RDW Plt Count Seg Neutrophils % Carbonic Acid HCO3/H2CO3 Ratio ABG pH ABG pCO2 ABG pO2 ABG HCO3 ABG O2 Saturation ABG Base Excess FiO2 Sodium Potassium Chloride Carbon Dioxide Anion Gap BUN Creatinine Est GFR ( Amer) Glucose Lactic Acid 1.3 Calcium Total Bilirubin AST Alkaline Phosphatase Total Protein Albumin 03/28/19 16:40 Troponin I < 0.012 NT-Pro-B Natriuret Pep 164 Impressions: Chest X-Ray 03/28/19 16:19 IMPRESSION: Probable vascular congestion in the setting of COPD. Interstitial pneumonitis is thought to be less likely. Assessment and Plan - Diagnosis (1) Acute interstitial pneumonia Is this a current diagnosis for this admission?: Yes (2) Acute exacerbation of chronic obstructive pulmonary disease (COPD) Is this a current diagnosis for this admission?: Yes (3) Acute and chronic respiratory failure with hypercapnia Is this a current diagnosis for this admission?: Yes (4) Hypokalemia Is this a current diagnosis for this admission?: Yes (5) Diabetes mellitus type 2 in obese Is this a current diagnosis for this admission?: Yes (6) Hypertension Qualifiers: Hypertension type: essential hypertension Qualified Code(s): I10 - Esse ntial (primary) hypertension Is this a current diagnosis for this admission?: Yes (7) Chronic renal disease, stage 3, moderately decreased glomerular filtration rate (GFR) between 30-59 mL/min/1.73 square meter Is this a current diagnosis for this admission?: Yes (8) GERD (gastroesophageal reflux disease) Qualifiers: Esophagitis presence: with esophagitis Qualified Code(s): K21.0 - Gastro- esophageal reflux disease with esophagitis Is this a current diagnosis for this admission?: Yes (9) Depression Qualifiers: Depression Type: dysthymia Qualified Code(s): F34.1 - Dysthymic disorder Is this a current diagnosis for this admission?: Yes - Plan Summary Summary: Patient will be treated with IV antibiotics utilizing Zithromax and Rocephin administered every 24 hours. She will be treated with an aggressive pulmonary toilet utilizing nebulized Xopenex, Atrovent, Pulmicort and Mucomyst. She will receive a burst dose of IV Solu-Medrol and will also receive supplemental oxygen via nasal cannula and or noninvasive airway pressure devices such as BiPAP as needed. She will be continued on her usual medications for hypertension and diabetes. Before meals and at bedtime Accu-Cheks to be performed and sliding scale insulin will be administered for hyperglycemia, with a hypoglycemic protocol also in place. Patient's potassium will be repleted utilizing IV fluids containing supplemental potassium and oral potassium repletion will be used ongoing. Patient's chronic renal insufficiency will be monitored along with her other medical problems with daily CBCs, metabolic profiles and magnesium levels. A hemoglobin A1c, lipid profile and thyroid profile will be obtained. Patient will use Nubain 5 to 10 mg IV every 3 hours on an as-needed basis for pain using a sliding scale for dosage. She will receive additional support for her gastroesophageal reflux disease by adding metoclopramide and sucralfate administered before meals and at bedtime during the time when she is stressed and receiving steroids. She will be continued on her usual antidepressant therapy once it has been determined by pharmacy and confirmed on the medication reconciliation list. - Time Time Spent with patient: 15-24 minutes Medications reviewed and adjusted accordingly: Yes Anticipated discharge: Home with Homehealth - Inpatient Certification Based on my medical assessment, after consideration of the patient's comorbidities, presenting symptoms, or acuity I expect that the services needed warrant INPATIENT care.: Yes I certify that my determination is in accordance with my understanding of Medicare's requirements for reasonable and necessary INPATIENT services [42 CFR 412.3e].: Yes Medical Necessity: Significant Comorbidiites Make Outpatient Treatment Too Risky, Need Close Monitoring Due to Risk of Patient Decompensation, Need for Nebulizer Therapy and Monitoring of Response, Need for IV Antibiotics, Risk of Complication if Not Cared For in Hospital, Other - Need for BiPAP respiratory support
[2019-03-29] MEDS: LEVALBUTEROL HCL NEB 1.25 MG/3 ML AMPUL NEB SCH ×4 (00:12→23:58)
[2019-03-29] MEDS: IPRATROPIUM BROMIDE 0.02% NEB 0.5 MG/2.5 ML AMPUL NEB SCH ×4 (00:12→23:58)
[2019-03-29 02:29] LABS: CREATINE KINASE MB 1.97 ng/mL (<4.55)
[2019-03-29 02:34] LABS: TROPONIN I < 0.012 ng/mL
[2019-03-29] MEDS: METHYLPREDNISOLONE INJ 40 MG/1 ML SDV IV SCH ×2 (03:42→09:03)
[2019-03-29] MEDS: PANTOPRAZOLE SODIUM 40 MG TABLET.DR PO SCH (06:04)
[2019-03-29] MEDS: HEPARIN SOD (PORCINE) 5,000 UNIT/ML 1 ML VIAL SUBCUT SCH ×3 (06:04→22:27)
[2019-03-29 06:50] LABS: HEMATOCRIT 31.6 % (36.0-47.0); MEAN CORPUSCULAR HEMOGLOBIN 26.9 pg (27.0-33.4); MEAN CORPUSCULAR HGB CONC 31.7 g/dL (32.0-36.0); MEAN CORPUSCULAR VOLUME 85 fl (80-97); PLATELET COUNT 216 10^3/uL (150-450); RED BLOOD COUNT 3.72 10^6/uL (3.72-5.28); RED CELL DISTRIBUTION WIDTH 14.2 % (11.5-14.0); WHITE BLOOD COUNT 8.5 10^3/uL (4.0-10.5)
[2019-03-29 07:07] LABS: ANION GAP 8 (5-19); BLOOD UREA NITROGEN 24 mg/dL (7-20); CALCIUM 8.4 mg/dL (8.4-10.2); CARBON DIOXIDE 33 mmol/L (22-30); CHLORIDE 102 mmol/L (98-107); CHOLESTEROL 108.19 mg/dL (0-200); GLUCOSE 221 mg/dL (75-110); TRIGLYCERIDES 85 mg/dL (<150)
[2019-03-29 07:17] LABS: DIRECT LDL 67 mg/dL (<100)
[2019-03-29 07:28] LABS: ARTERIAL BLOOD BASE EXCESS 9.8 mmol/L; ARTERIAL BLOOD FIO2 3L; ARTERIAL BLOOD H2CO3 1.89 mmol/L (1.05-1.35); ARTERIAL BLOOD HCO3 36.7 mmol/L (20-24); ARTERIAL BLOOD O2 SATURATION 93.8 % (94-98); ARTERIAL BLOOD PCO2 62.9 mmHg (35-45); ARTERIAL BLOOD PH 7.38 (7.35-7.45); ARTERIAL BLOOD TOTAL CO2 38.6 mmol/L (21-25)
[2019-03-29 07:41] LABS: POTASSIUM 3.8 mmol/L (3.6-5.0)
[2019-03-29] MEDS: ACETYLCYSTEINE 20% SOLN 800 MG/4 ML VIAL.NEB NEB SCH ×2 (08:38→20:07)
[2019-03-29] MEDS: BUDESONIDE NEB 0.5 MG/2 ML AMPUL NEB SCH ×2 (08:38→20:07)
[2019-03-29 08:51] LABS: CREATINE KINASE MB 1.99 ng/mL (<4.55)
[2019-03-29 08:54] LABS: TROPONIN I < 0.012 ng/mL
[2019-03-29] MEDS: INSULIN REG, HUMAN 100 UNIT/ML 3 ML VIAL (PYX) SUBCUT SCH ×4 (09:02→22:24)
[2019-03-29] MEDS: METOCLOPRAMIDE HCL 10 MG TABLET PO SCH ×4 (09:03→22:26)
[2019-03-29] MEDS: FUROSEMIDE 20 MG TABLET PO SCH ×2 (09:03→17:22)
[2019-03-29] MEDS: GLYBURIDE 2.5 MG TABLET PO SCH ×2 (09:03→17:25)
[2019-03-29] MEDS: SUCRALFATE 1 GM TABLET PO SCH ×4 (09:03→22:25)
[2019-03-29] MEDS: DOCUSATE SODIUM 100 MG CAPSULE PO SCH ×2 (09:03→17:23)
[2019-03-29] MEDS ORDERED: LOSARTAN POTASSIUM 50 MG TABLET PO SCH (10:00)
--- NOTE | 2019-03-29 10:07 | PDOC PROGRESS REPORT ---
Subjective Progress Note for:: 03/29/19 Subjective:: 68 year old female who presented to the emergency room with a 2-week history of dyspnea. She admits gradually worsening dyspnea accompanied by a cough productive of yellow to green mucus in moderate amounts for the last 2 weeks. Her dyspnea has become moderately severe today and she became very hypoxic when traveling to her doctor's office without the support of her usual oxygen at 3 L/min per nasal cannula. Her O2 sat had dropped to 77% by the time she was seen in her physician's office where she was treated with a medications via nebulizer, with modest improvement, and was then sent to the emergency room for further evaluation and treatment. She admits that her dyspnea was markedly worsened by activity or exertion. She denies other associated or accompanying signs and symptoms. She admits prior similar episodes related to her COPD and has not identified any aggravating or ameliorating factors for her dyspnea. In the emergency room she was initially hypoxic but her O2 sat improved with placing her back on 3 L of oxygen for per nasal cannula but then her respiratory status worsened and she required BiPAP respiratory support. Chest x-ray showed no airspace infiltrate but did suggest mild vascular congestion or a possible interstitial infiltrate. She was started on IV antibiotics with Rocephin and Zithromax and subsequently admitted to the hospital on the pneumonia protocol. [id number]-old female admitted with 2 weeks history of shortness of breath. Chest x-ray shows interstitial pneumonitis with possible congestion and COPD. The CT chest without contrast today. Pulse ox is 96% on room air today. No complaints from the patient. Cultures are pending. Reason For Visit: ACUTE INTERSTITIAL PNEUMONITIS,ACUTE ON CHRONIC Physical Exam Vital Signs: Temp Pulse Resp BP Pulse Ox 98.2 F 79 18 124/74 98 03/29/19 07:20 03/29/19 08:38 03/29/19 08:38 03/29/19 07:20 03/29/19 08:38 Pulse Oximeter Continuous Start: 03/28/19 20:06 Freq: RTQ4 Status: Active Protocol: Document 03/29/19 08:38 [facility] (Rec: 03/29/19 09:09 [facility] [id number]) Additional RT Notes Other Patient indicated she had no issues. Pulse Oximetry Assessment Oxygen Saturation (92-100) 98 Oxygen Flow Rate (L/min) 3 Oxygen Delivery Method Nasal Cannula Equipment Usage Equipment in Use Continuous SpO2 Machine # [id number] Intake & Output 03/28/19 03/29/19 03/30/19 06:59 06:59 06:59 Intake Total 1004 Balance 1004 Weight 106.3 kg General appearance: PRESENT: no acute distress Head exam: PRESENT: atraumatic Eye exam: PRESENT: PERRLA Mouth exam: PRESENT: moist, tongue midline Teeth exam: PRESENT: poor dentation Neck exam: ABSENT: carotid bruit, JVD, lymphadenopathy, thyromegaly Respiratory exam: PRESENT: decreased breath sounds Cardiovascular exam: PRESENT: RRR. ABSENT: diastolic murmur, rubs, systolic murmur GI/Abdominal exam: PRESENT: normal bowel sounds, soft. ABSENT: distended, guarding, mass, organolmegaly, rebound, tenderness Rectal exam: PRESENT: deferred Extremities exam: PRESENT: full ROM. ABSENT: calf tenderness, clubbing, pedal edema Neurological exam: PRESENT: alert, awake, oriented to person, oriented to place, oriented to time, oriented to situation, CN II-XII grossly intact. ABSENT: motor sensory deficit Psychiatric exam: PRESENT: appropriate affect, normal mood. ABSENT: homicidal ideation, suicidal ideation Results Laboratory Results: 03/29/19 06:33 03/29/19 06:33 03/28/19 03/28/19 03/28/19 16:31 16:40 16:40 WBC 14.2 H RBC 4.03 Hgb 10.9 L Hct 34.7 L MCV 86 MCH 27.0 MCHC 31.4 L RDW 14.2 H Plt Count 262 Seg Neutrophils % 73.5 Carbonic Acid 1.61 H HCO3/H2CO3 Ratio 21:1 ABG pH 7.43 ABG pCO2 53.6 H ABG pO2 61.4 L ABG HCO3 34.8 H ABG O2 Saturation 91.7 L ABG Base Excess 9.0 FiO2 2L Sodium 141.7 Potassium 2.8 L* Chloride 96 L Carbon Dioxide 37 H Anion Gap 9 BUN 24 H Creatinine 1.66 H Est GFR ( Amer) 37 L Glucose 200 H Lactic Acid Calcium 8.9 Magnesium Total Bilirubin 0.5 AST 29 Alkaline Phosphatase 151 H Total Protein 6.7 Albumin 3.4 L Triglycerides Cholesterol LDL Cholesterol Direct VLDL Cholesterol HDL Cholesterol TSH Free T4 Free T3 pg/mL 10/08/1503/28/19 03/28/19 16:40 16:40 21:23 WBC RBC Hgb Hct MCV MCH MCHC RDW Plt Count Seg Neutrophils % Carbonic Acid HCO3/H2CO3 Ratio ABG pH ABG pCO2 ABG pO2 ABG HCO3 ABG O2 Saturation ABG Base Excess FiO2 Sodium Potassium Chloride Carbon Dioxide Anion Gap BUN Creatinine Est GFR ( Amer) Glucose Lactic Acid 1.3 0.8 Calcium Magnesium Total Bilirubin AST Alkaline Phosphatase Total Protein Albumin Triglycerides Cholesterol LDL Cholesterol Direct VLDL Cholesterol HDL Cholesterol TSH Free T4 1.45 Free T3 pg/mL 3.26 03/29/19 03/29/19 03/29/19 01:54 06:20 06:33 WBC 8.5 RBC 3.72 Hgb 10.0 L Hct 31.6 L MCV 85 MCH 26.9 L MCHC 31.7 L RDW 14.2 H Plt Count 216 Seg Neutrophils % Carbonic Acid 1.89 H HCO3/H2CO3 Ratio 19:1 ABG pH 7.38 ABG pCO2 62.9 H ABG pO2 72.0 L ABG HCO3 36.7 H ABG O2 Saturation 93.8 L ABG Base Excess 9.8 FiO2 3L Sodium Potassium Chloride Carbon Dioxide Anion Gap BUN Creatinine Est GFR ( Amer) Glucose Lactic Acid 0.6 L Calcium Magnesium Total Bilirubin AST Alkaline Phosphatase Total Protein Albumin Triglycerides Cholesterol LDL Cholesterol Direct VLDL Cholesterol HDL Cholesterol TSH Free T4 Free T3 pg/mL 03/29/19 03/29/19 03/29/19 06:33 06:33 06:33 WBC RBC Hgb Hct MCV MCH MCHC RDW Plt Count Seg Neutrophils % Carbonic Acid HCO3/H2CO3 Ratio ABG pH ABG pCO2 ABG pO2 ABG HCO3 ABG O2 Saturation ABG Base Excess FiO2 Sodium 143.0 Potassium 3.8 D Chloride 102 Carbon Dioxide 33 H Anion Gap 8 BUN 24 H Creatinine 1.36 H Est GFR ( Amer) 47 L Glucose 221 H Lactic Acid 0.9 Calcium 8.4 Magnesium 1.9 Total Bilirubin AST Alkaline Phosphatase Total Protein Albumin Triglycerides 85 Cholesterol 108.19 LDL Cholesterol Direct 67 VLDL Cholesterol 17.0 HDL Cholesterol 28 L TSH 1.14 Free T4 Free T3 pg/mL 03/28/19 03/28/19 03/28/19 16:40 21:23 21:23 Creatine Kinase 132 CK-MB (CK-2) 1.92 Troponin I < 0.012 < 0.012 NT-Pro-B Natriuret Pep 164 177 03/29/19 03/29/19 03/29/19 01:54 01:54 07:56 Creatine Kinase 137 H 110 CK-MB (CK-2) 1.97 Troponin I < 0.012 NT-Pro-B Natriuret Pep 03/29/19 07:56 Creatine Kinase CK-MB (CK-2) 1.99 Troponin I < 0.012 NT-Pro-B Natriuret Pep Impressions: Chest X-Ray 03/28/19 16:19 IMPRESSION: Probable vascular congestion in the setting of COPD. Interstitial pneumonitis is thought to be less likely. Assessment and Plan - Diagnosis (1) Acute and chronic respiratory failure with hypercapnia Is this a current diagnosis for this admission?: Yes (2) Acute exacerbation of chronic obstructive pulmonary disease (COPD) Is this a current diagnosis for this admission?: Yes (3) Acute interstitial pneumonia Is this a current diagnosis for this admission?: Yes (4) Hypokalemia Is this a current diagnosis for this admission?: Yes (5) Diabetes mellitus type 2 in obese Is this a current diagnosis for this admission?: Yes (6) GERD (gastroesophageal reflux disease) Qualifiers: Esophagitis presence: with esophagitis Qualified Code(s): K21.0 - Gastro- esophageal reflux disease with esophagitis Is this a current diagnosis for this admission?: Yes (7) Depression Qualifiers: Depression Type: dysthymia Qualified Code(s): F34.1 - Dysthymic disorder Is this a current diagnosis for this admission?: Yes (8) Chronic renal disease, stage 3, moderately decreased glomerular filtration rate (GFR) between 30-59 mL/min/1.73 square meter Is this a current diagnosis for this admission?: Yes - Plan Summary Summary: Patient will be treated with IV antibiotics utilizing Zithromax and Rocephin administered every 24 hours. She will be treated with an aggressive pulmonary toilet utilizing nebulized Xopenex, Atrovent, Pulmicort and Mucomyst. She will receive a burst dose of IV Solu-Medrol and will also receive supplemental oxygen via nasal cannula and or noninvasive airway pressure devices such as BiPAP as needed. She will be continued on her usual medications for hypertension and diabetes. Before meals and at bedtime Accu-Cheks to be performed and sliding scale insulin will be administered for hyperglycemia, with a hypoglycemic p rotocol also in place. Patient's potassium will be repleted utilizing IV fluids containing supplemental potassium and oral potassium repletion will be used ongoing. Patient's chronic renal insufficiency will be monitored along with her other medical problems with daily CBCs, metabolic profiles and magnesium levels. A hemoglobin A1c, lipid profile and thyroid profile will be obtained. Patient will use Nubain 5 to 10 mg IV every 3 hours on an as-needed basis for pain using a sliding scale for dosage. She will receive additional support for her gastroesophageal reflux disease by adding metoclopramide and sucralfate administered before meals and at bedtime during the time when she is stressed and receiving steroids. She will be continued on her usual antidepressant therapy once it has been determined by pharmacy and confirmed on the medication reconciliation list. 1.acute interstitial pneumonia She came in with 2 weeks history of shortness of breath pulse ox on 2 L nasal cannula this morning is 96%. Patient was started on Zithromax and IV Rocephin. Plan to do the CT chest without contrast today get further information. She is receiving aggressive pulmonary toilet with nebulized Xopenex, Atrovent, Pulmicort, Mucomyst. Also on IV Solu-Medrol. Plan is to discontinue IV Solu- Medrol today and provide supplemental oxygen. 2.acute on chronic respiratory failure with hypercapnia. Pulse ox today is 96% on 2 L. Patient is not on BiPAP. Comfortable in the bed communicating well. Chest bilateral entry was decreased no wheezing no crepitations. Acute on chronic respiratory failure with hypoxia resolving. 3.acute exacerbation of COPD. 4.pt is receiving Atrovent, Pulmicort, Mucomyst. She is also receiving nebulized Xopenex. Chest bilateral entry was decreased no wheezing no crepitations on examination. On oxygen nasal cannula 2 L/min. Will check for the home oxygen needs. 5.chronic renal disease stage3 Patient serum creatinine is 1.66 at the time of admission and improved to 1.36 today. Acute kidney injury most likely secondary to prerenal causes resolving. 6.hypertension Blood pressure today is 118/63. Stable. Plan is to continue the present manage ment. 7.diabetes mellitus patient's latest blood sugar is 121 with hemoglobin A1c of 7.0. Patient on insulin sliding scale before meals and at bedtime. Dietary consult was provided. Plan is to continue the present management. 8.Hypokalemia Patient's serum potassium is 3.8 admission serum potassium is 2.8 hypokalemia is resolved with potassium supplementation.
[2019-03-29] MEDS ORDERED: INFLUENZA QUAD (6MOS+) 2019-20 VAC 0.5 ML SYR IM ONE (10:45)
--- NOTE | 2019-03-29 11:49 | RADIOLOGY REPORT (SQ) ---
EXAM DESCRIPTION: CT CHEST WITHOUT COMPLETED DATE/TIME: 03/29/2019 11:26 am REASON FOR STUDY: copd/chf COMPARISON: CT chest 02/07/2009 Chest films 03/28/2019, 08/04/2017, 10/10/2015 TECHNIQUE: CT scan performed of the chest without intravenous contrast. Images reviewed with lung, soft tissue and bone windows. Reconstructed coronal and sagittal MPR images reviewed. All images st ored on PACS. All CT scanners at this facility use dose modulation, iterative reconstruction, and/or weight based d osing when appropriate to reduce radiation dose to as low as reasonably achievable (ALARA). [facility]: Dose Right [facility]: CareDose [facility]: Dose Right [facility]: Teradose 4D [facility]: [employer] RADIATION DOSE: CT Rad equipment meets quality standard of care and radiation dose reduction techniq ues were employed. CTDIvol: 13.4 mGy. DLP: 482 mGy-cm. mGy. LIMITATIONS: No technical limitations. FINDINGS: LUNGS AND PLEURA: Enlarged airspaces from obstructive lung disease are present throughout the upper lobes bilaterally. There is pleural-parenchymal scarring at the right and left lung apex similar compared to 2009. Mild increased interstitial markings are seen along the right minor fissure region, and periphery of the lingula and left posterior costophrenic sulcus, increase compared to 2009 but still chronic in ap pearance. No fluffy alveolar infiltrates worrisome for pulmonary edema or pneumonia. No significant pleural ef fusion. Airways are patent. HILAR AND MEDIASTINAL STRUCTURES: There is mild nonspecific mediastinal adenopathy, with a prominent precarinal lymph node 2.9 by 1.3 cm in size on axial image 22. HEART AND VASCULAR STRUCTURES: Aberrant right subclavian artery axial image 9 through 15. No thoraci c aortic aneurysm. Minimal coronary artery calcification UPPER ABDOMEN: Post cholecystectomy THYROID AND OTHER SOFT TISSUES: No masses. No adenopathy. BONES: No significant finding. HARDWARE: None in the chest. OTHER: No other significant findings. IMPRESSION: Obstructive lung disease Chronic increased interstitial markings No acute infiltrates. No pleural effusion TECHNICAL DOCUMENTATION: JOB ID: [id number] Quality ID # [id number]: Final reports with documentation of one or more dose reduction techniques (e.g., Au tomated exposure control, adjustment of the mA and/or kV according to patient size, use of iterative reconstruction technique) 2010 [email or web address]- All Rights Reserved Reading location - IP/workstation name: [email or web address]
[2019-03-29] MEDS: POTASSI CL 40 MEQ/NS 1L 1,000 ML IV PRN (13:53)
[2019-03-29] MEDS: CEFTRIAXONE 1 GM/D5W RTU 1 GM/50 ML RTUPB IV SCH (17:23)
[2019-03-29 20:01] LABS: APPEARANCE,URINE SLIGHTLY-CLOUDY; BILIRUBIN,URINE NEGATIVE (NEGATIVE); COLOR,URINE YELLOW; GLUCOSE, URINE NEGATIVE (NEGATIVE); KETONES,URINE NEGATIVE (NEGATIVE); LEUKOCYTE ESTERASE,URINE NEGATIVE (NEGATIVE); NITRITE,URINE NEGATIVE (NEGATIVE); PROTEIN,URINE NEGATIVE (NEGATIVE); URINE SPECIFIC GRAVITY 1.009; UROBILINOGEN,URINE NEGATIVE mg/dL (<2.0)
[2019-03-29] MEDS: LEVALBUTEROL HCL NEB 0.63 MG/3 ML AMPUL NEB PRN (20:07)
[2019-03-29] MEDS ORDERED: DILTIAZEM HCL 180 MG CAPSULE.CR PO SCH (22:00)
[2019-03-29] MEDS: AZITHROMYCIN 500 MG in DEXTROSE 5%-WATER 250 ML IV SCH (22:23)
[2019-03-30] MEDS: HEPARIN SOD (PORCINE) 5,000 UNIT/ML 1 ML VIAL SUBCUT SCH ×3 (06:08→22:00)
[2019-03-30] MEDS: POTASSI CL 40 MEQ/NS 1L 1,000 ML IV PRN ×2 (06:08→20:10)
[2019-03-30] MEDS: PANTOPRAZOLE SODIUM 40 MG TABLET.DR PO SCH (06:08)
[2019-03-30 06:17] LABS: HEMATOCRIT 28.5 % (36.0-47.0); HEMOGLOBIN 8.9 g/dL (12.0-15.5); MEAN CORPUSCULAR HEMOGLOBIN 26.2 pg (27.0-33.4); MEAN CORPUSCULAR HGB CONC 31.1 g/dL (32.0-36.0); MEAN CORPUSCULAR VOLUME 84 fl (80-97); PLATELET COUNT 233 10^3/uL (150-450); RED BLOOD COUNT 3.39 10^6/uL (3.72-5.28)
[2019-03-30 06:40] LABS: ANION GAP 7 (5-19); BLOOD UREA NITROGEN 25 mg/dL (7-20); CALCIUM 8.3 mg/dL (8.4-10.2); CARBON DIOXIDE 33 mmol/L (22-30); CHLORIDE 102 mmol/L (98-107); GLUCOSE 95 mg/dL (75-110); POTASSIUM 3.5 mmol/L (3.6-5.0)
[2019-03-30] MEDS: BUDESONIDE NEB 0.5 MG/2 ML AMPUL NEB SCH ×2 (07:54→19:53)
[2019-03-30] MEDS: ACETYLCYSTEINE 20% SOLN 800 MG/4 ML VIAL.NEB NEB SCH ×2 (07:54→19:53)
[2019-03-30] MEDS: LEVALBUTEROL HCL NEB 1.25 MG/3 ML AMPUL NEB SCH ×2 (07:54→16:40)
[2019-03-30] MEDS: IPRATROPIUM BROMIDE 0.02% NEB 0.5 MG/2.5 ML AMPUL NEB SCH ×2 (07:54→16:40)
[2019-03-30] MEDS: INSULIN REG, HUMAN 100 UNIT/ML 3 ML VIAL (PYX) SUBCUT SCH ×4 (08:42→22:14)
--- NOTE | 2019-03-30 09:39 | PDOC PROGRESS REPORT ---
Subjective Progress Note for:: 03/30/19 Subjective:: 68 year old female who presented to the emergency room with a 2-week history of dyspnea. She admits gradually worsening dyspnea accompanied by a cough productive of yellow to green mucus in moderate amounts for the last 2 weeks. Her dyspnea has become moderately severe today and she became very hypoxic when traveling to her doctor's office without the support of her usual oxygen at 3 L/min per nasal cannula. Her O2 sat had dropped to 77% by the time she was seen in her physician's office where she was treated with a medications via nebulizer, with modest improvement, and was then sent to the emergency room for further evaluation and treatment. She admits that her dyspnea was markedly worsened by activity or exertion. She denies other associated or accompanying signs and symptoms. She admits prior similar episodes related to her COPD and has not identified any aggravating or ameliorating factors for her dyspnea. In the emergency room she was initially hypoxic but her O2 sat improved with placing her back on 3 L of oxygen for per nasal cannula but then her respiratory status worsened and she required BiPAP respiratory support. Chest x-ray showed no airspace infiltrate but did suggest mild vascular congestion or a possible interstitial infiltrate. She was started on IV antibiotics with Rocephin and Zithromax and subsequently admitted to the hospital on the pneumonia protocol. 03/29/[id number]-uaxk-old female admitted with 2 weeks history of shortness of breath. Chest x-ray shows interstitial pneumonitis with possible congestion and COPD. The CT chest without contrast today. Pulse ox is 96% on room air today. No complaints from the patient. Cultures are pending. 03/30/[id number]-zaxe-old female admitted with shortness of breath. CT chest without contrast , yesterday no evidence of pneumonia no evidence of any fluid overload noticed. Pulse oxes 93% and 4 L today. Patient uses oxygen 2 L via nasal cannula at home. Patient's WBC count went up from 7000-14,000 today plan is to repeat the labs tomorrow. Cultures are negative so far. IV Rocephin and Zithromax. Reason For Visit: ACUTE INTERSTITIAL PNEUMONITIS,ACUTE ON CHRONIC Physical Exam Vital Signs: Temp Pulse Resp BP Pulse Ox 98.5 F 81 19 122/46 L 89 L 03/30/19 08:40 03/30/19 08:40 03/30/19 08:40 03/30/19 08:40 03/30/19 08:40 Pulse Oximeter Continuous Start: 03/28/19 20:06 Freq: RTQ4 Status: Active Protocol: Document 03/30/19 07:55 LDA (Rec: 03/30/19 07:59 [email or web address] [id number]) Pulse Oximetry Assessment Oxygen Saturation (92-100) 98 Oxygen Flow Rate (L/min) 3 Oxygen Delivery Method Nasal Cannula Fraction of Inspired Oxygen (FIO2) 32 Equipment Usage Equipment in Use Continuous SpO2 Machine # 4 Intake & Output 03/29/19 03/30/19 03/31/19 06:59 06:59 06:59 Intake Total 1004 4158 Output Total 100 Balance 1004 4058 Weight 106.3 kg 107.6 kg General appearance: PRESENT: no acute distress, obese Head exam: PRESENT: atraumatic Eye exam: PRESENT: PERRLA Mouth exam: PRESENT: moist, tongue midline Teeth exam: PRESENT: poor dentation Neck exam: ABSENT: carotid bruit, JVD, lymphadenopathy, thyromegaly Respiratory exam: PRESENT: decreased breath sounds Cardiovascular exam: PRESENT: RRR. ABSENT: diastolic murmur, rubs, systolic murmur GI/Abdominal exam: PRESENT: normal bowel sounds, soft. ABSENT: distended, guarding, mass, organolmegaly, rebound, tenderness Rectal exam: PRESENT: deferred Neurological exam: PRESENT: alert Psychiatric exam: PRESENT: appropriate affect, normal mood. ABSENT: homicidal ideation, suicidal ideation Results Laboratory Results: 03/30/19 05:01 03/30/19 05:01 03/29/19 03/30/19 03/30/19 19:37 05:01 05:01 WBC 14.0 H RBC 3.39 L Hgb 8.9 L Hct 28.5 L MCV 84 MCH 26.2 L MCHC 31.1 L RDW 14.0 Plt Count 233 Sodium 141.9 Potassium 3.5 L Chloride 102 Carbon Dioxide 33 H Anion Gap 7 BUN 25 H Creatinine 1.23 Est GFR ( Amer) 52 L Glucose 95 Calcium 8.3 L Magnesium 1.8 Urine Color YELLOW Urine Appearance SLIGHTLY-CLOUDY Urine pH 5.0 Ur Specific [place] 1.009 Urine Protein NEGATIVE Urine Glucose (UA) NEGATIVE Urine Ketones NEGATIVE Urine Blood NEGATIVE Urine Nitrite NEGATIVE Ur Leukocyte Esterase NEGATIVE Urine WBC (Auto) 1 Urine RBC (Auto) 1 03/28/19 03/28/19 03/28/19 16:40 21:23 21:23 Creatine Kinase 132 CK-MB (CK-2) 1.92 Troponin I < 0.012 < 0.012 NT-Pro-B Natriuret Pep 164 177 03/29/19 03/29/19 03/29/19 01:54 01:54 07:56 Creatine Kinase 137 H 110 CK-MB (CK-2) 1.97 Troponin I < 0.012 NT-Pro-B Natriuret Pep 03/29/19 07:56 Creatine Kinase CK-MB (CK-2) 1.99 Troponin I < 0.012 NT-Pro-B Natriuret Pep Impressions: Chest X-Ray 03/28/19 16:19 IMPRESSION: Probable vascular congestion in the setting of COPD. Interstitial pneumonitis is thought to be less likely. Chest CT 03/29/19 00:00 IMPRESSION: Obstructive lung disease Chronic increased interstitial markings No acute infiltrates. No pleural effusion Assessment and Plan - Diagnosis (1) Acute and chronic respiratory failure with hypercapnia Is this a current diagnosis for this admission?: Yes (2) Acute exacerbation of chronic obstructive pulmonary disease (COPD) Is this a current diagnosis for this admission?: Yes (3) Acute interstitial pneumonia Is this a current diagnosis for this admission?: Yes (4) Hypokalemia Is this a current diagnosis for this admission?: Yes (5) Diabetes mellitus type 2 in obese Is this a current diagnosis for this admission?: Yes (6) GERD (gastroesophageal reflux disease) Qualifiers: Esophagitis presence: with esophagitis Qualified Code(s): K21.0 - Gastro- esophageal reflux disease with esophagitis Is this a current diagnosis for this admission?: Yes (7) Depression Qualifiers: Depression Type: dysthymia Qualified Code(s): F34.1 - Dysthymic disorder Is this a current diagnosis for this admission?: Yes (8) Chronic renal disease, stage 3, moderately decreased glomerular filtration rate (GFR) between 30-59 mL/min/1.73 square meter Is this a current diagnosis for this admission?: Yes - Plan Summary Summary: Patient will be treated with IV antibiotics utilizing Zithromax and Rocephin administered every 24 hours. She will be treated with an aggressive pulmonary toilet utilizing nebulized Xopenex, Atrovent, Pulmicort and Mucomyst. She will receive a burst dose of IV Solu-Medrol and will also receive supplemental oxygen via nasal cannula and or noninvasive airway pressure devices such as BiPAP as needed. She will be continued on her usual medications for hypertension and diabetes. Before meals and at bedtime Accu-Cheks to be performed and sliding scale insulin will be administered for hyperglycemia, with a hypoglycemic protocol also in place. Patient's potassium will be repleted utilizing IV fluids containing supplemental potassium and oral potassium repletion will be used ongoing. Patient's chronic renal insufficiency will be monitored along with her other medical problems with daily CBCs, metabolic profiles and magnesium levels. A hemoglobin A1c, lipid profile and thyroid profile will be obtained. Patient will use Nubain 5 to 10 mg IV every 3 hours on an as-needed basis for pain using a sliding scale for dosage. She will receive additional support for her gastroesophageal reflux disease by adding metoclopramide and sucralfate administered before meals and at bedtime during the time when she is stressed and receiving steroids. She will be continued on her usual antidepressant therapy once it has been determined by pharmacy and confirmed on the medication reconciliation list. 1.acute interstitial pneumonia She came in with 2 weeks history of shortness of breath pulse ox on 2 L nasal cannula this morning is 96%. Patient was started on Zithromax and IV Rocephin. Plan to do the CT chest without contrast today get further information. She is receiving aggressive pulmonary toilet with nebulized Xopenex, Atrovent, Pulmicort, Mucomyst. Also on IV Solu-Medrol. Plan is to discontinue IV Solu- Medrol today and provide supplemental oxygen. 03/30/2019-CT chest without contrast was done no evidence of any pneumonia no evidence of fluid overload is noticed. WBC went up to 14,000 presently on IV Rocephin and IV Zithromax. WBC may be secondary to steroid therapy until yesterday. 2.acute on chronic respiratory failure with hypercapnia. Pulse ox today is 96% on 2 L. Patient is not on BiPAP. Comfortable in the bed communicating well. Chest bilateral entry was decreased no wheezing no crepitations. Acute on chronic respiratory failure with hypoxia resolving. 03/30/2019-patient pulse ox today is 93% on 2 L. She is uses 2 L oxygen at home. Plan is to continue the present management acute on chronic respiratory failure with hypercapnia resolving. 3.acute exacerbation of COPD. 4.pt is receiving Atrovent, Pulmicort, Mucomyst. She is also receiving nebulized Xopenex. Chest bilateral entry was decreased no wheezing no crepita tions on examination. On oxygen nasal cannula 2 L/min. Will check for the home oxygen needs. 03/30/2019-patient admitted with acute exacerbation of COPD presently prevent, Pulmicort, Mucomyst. Patient is also receiving nebulized Xopenex. On examination chest bilateral entry was good no wheezing no crepitations. 5.chronic renal disease stage3 Patient serum creatinine is 1.66 at the time of admission and improved to 1.36 today. Acute kidney injury most likely secondary to prerenal causes resolving. 03/30/2019-patient serum creatinine is 1.23 today. At the time of admission it is 1.66. Acute kidney injury most likely secondary to prerenal causes resolved. 6.hypertension Blood pressure today is 118/63. Stable. Plan is to continue the present management. 03/30/2019-patient blood pressure today is 104/60. Stable. Plan is to continue to closely monitor the blood pressures. 7.diabetes mellitus patient's latest blood sugar is 121 with hemoglobin A1c of 7 .0. Patient on insulin sliding scale before meals and at bedtime. Dietary consult was provided. Plan is to continue the present management. 03/30/2019-patient's blood sugar this morning is 95 well-controlled. She is off the steroids. Hemoglobin A1c 7.0. Plan is to continue insulin sliding scale before meals and at bedtime. 8.Hypokalemia Patient's serum potassium is 3.8 admission serum potassium is 2.8 hypokalemia is resolved with potassium supplementation. 03/30/2019-serum potassium is 3.5 which is going to be supplemented.
[2019-03-30] MEDS: CETIRIZINE 10 MG TABLET PO SCH (09:53)
[2019-03-30] MEDS: MONTELUKAST SODIUM 10 MG TABLET PO SCH (09:53)
[2019-03-30] MEDS: ESCITALOPRAM OXALATE 10 MG TABLET PO SCH (09:53)
[2019-03-30] MEDS: LOSARTAN POTASSIUM 50 MG TABLET PO SCH (09:53)
[2019-03-30] MEDS: ASPIRIN 81 MG TABLET, CHEWABLE PO SCH (09:53)
[2019-03-30] MEDS: METOCLOPRAMIDE HCL 10 MG TABLET PO SCH ×4 (09:54→22:00)
[2019-03-30] MEDS: SUCRALFATE 1 GM TABLET PO SCH ×4 (09:54→22:00)
[2019-03-30] MEDS: GLYBURIDE 2.5 MG TABLET PO SCH ×2 (09:54→18:03)
[2019-03-30] MEDS: FUROSEMIDE 20 MG TABLET PO SCH ×2 (09:54→18:08)
[2019-03-30] MEDS: ATORVASTATIN CALCIUM 20 MG TABLET PO SCH (09:54)
[2019-03-30] MEDS: DOCUSATE SODIUM 100 MG CAPSULE PO SCH ×2 (09:55→18:03)
[2019-03-30] MEDS: CHLORTHALIDONE 25 MG TABLET PO SCH (09:56)
[2019-03-30] MEDS: DILTIAZEM HCL 180 MG CAPSULE.CR PO SCH (09:56)
[2019-03-30] MEDS: DILTIAZEM HCL 240 MG CAPSULE.CR PO SCH (09:57)
[2019-03-30] MEDS ORDERED: CALCITRIOL 0.25 MCG CAPSULE PO SCH (10:00)
[2019-03-30] MEDS ORDERED: PANTOPRAZOLE SODIUM 20 MG TABLET.DR PO SCH (10:00)
[2019-03-30] MEDS ORDERED: DILTIAZEM HCL 420 MG PO SCH (10:00)
[2019-03-30] MEDS: CEFTRIAXONE 1 GM/D5W RTU 1 GM/50 ML RTUPB IV SCH (18:08)
[2019-03-30] MEDS: LEVALBUTEROL HCL NEB 0.63 MG/3 ML AMPUL NEB PRN (19:53)
[2019-03-30] MEDS: AZITHROMYCIN 500 MG in DEXTROSE 5%-WATER 250 ML IV SCH (20:15)
[2019-03-31] MEDS: IPRATROPIUM BROMIDE 0.02% NEB 0.5 MG/2.5 ML AMPUL NEB SCH ×2 (00:17→08:16)
[2019-03-31] MEDS: LEVALBUTEROL HCL NEB 1.25 MG/3 ML AMPUL NEB SCH ×2 (00:17→08:16)
[2019-03-31 05:05] LABS: HEMATOCRIT 29.3 % (36.0-47.0); HEMOGLOBIN 9.3 g/dL (12.0-15.5); MEAN CORPUSCULAR HEMOGLOBIN 26.9 pg (27.0-33.4); MEAN CORPUSCULAR HGB CONC 31.9 g/dL (32.0-36.0); MEAN CORPUSCULAR VOLUME 84 fl (80-97); PLATELET COUNT 249 10^3/uL (150-450); RED BLOOD COUNT 3.48 10^6/uL (3.72-5.28); RED CELL DISTRIBUTION WIDTH 14.3 % (11.5-14.0); WHITE BLOOD COUNT 12.9 10^3/uL (4.0-10.5)
[2019-03-31 05:21] LABS: ANION GAP 6 (5-19); BLOOD UREA NITROGEN 21 mg/dL (7-20); CALCIUM 8.4 mg/dL (8.4-10.2); CARBON DIOXIDE 37 mmol/L (22-30); CHLORIDE 100 mmol/L (98-107); POTASSIUM 3.7 mmol/L (3.6-5.0)
[2019-03-31 05:29] LABS: GLUCOSE 57 mg/dL (75-110)
[2019-03-31] MEDS: HEPARIN SOD (PORCINE) 5,000 UNIT/ML 1 ML VIAL SUBCUT SCH (05:37)
[2019-03-31] MEDS: PANTOPRAZOLE SODIUM 40 MG TABLET.DR PO SCH (05:37)
[2019-03-31] MEDS ORDERED: MAGNESIUM SULFATE/D5W 1 GM/100 ML RTUPB IV ONE (07:49)
[2019-03-31] MEDS: ACETYLCYSTEINE 20% SOLN 800 MG/4 ML VIAL.NEB NEB SCH (08:16)
[2019-03-31] MEDS: BUDESONIDE NEB 0.5 MG/2 ML AMPUL NEB SCH (08:16)
[2019-03-31] MEDS: INSULIN REG, HUMAN 100 UNIT/ML 3 ML VIAL (PYX) SUBCUT SCH ×2 (08:19→12:41)
[2019-03-31] MEDS: MONTELUKAST SODIUM 10 MG TABLET PO SCH (09:51)
[2019-03-31] MEDS: FUROSEMIDE 20 MG TABLET PO SCH (09:51)
[2019-03-31] MEDS: ESCITALOPRAM OXALATE 10 MG TABLET PO SCH (09:51)
[2019-03-31] MEDS: LOSARTAN POTASSIUM 50 MG TABLET PO SCH (09:51)
[2019-03-31] MEDS: DOCUSATE SODIUM 100 MG CAPSULE PO SCH (09:52)
[2019-03-31] MEDS: DILTIAZEM HCL 180 MG CAPSULE.CR PO SCH (09:52)
[2019-03-31] MEDS: CETIRIZINE 10 MG TABLET PO SCH (09:52)
[2019-03-31] MEDS: METOCLOPRAMIDE HCL 10 MG TABLET PO SCH ×2 (09:52→12:41)
[2019-03-31] MEDS: ATORVASTATIN CALCIUM 20 MG TABLET PO SCH (09:53)
[2019-03-31] MEDS: DILTIAZEM HCL 240 MG CAPSULE.CR PO SCH (09:53)
[2019-03-31] MEDS: SUCRALFATE 1 GM TABLET PO SCH ×2 (09:53→12:41)
[2019-03-31] MEDS: ASPIRIN 81 MG TABLET, CHEWABLE PO SCH (09:53)
[2019-03-31] MEDS: CHLORTHALIDONE 25 MG TABLET PO SCH (09:54)
[2019-03-31] MEDS: GLYBURIDE 2.5 MG TABLET PO SCH (09:54)
[2019-03-31 12:34] VITALS: BP 134/59
[2019-03-31] MEDS ORDERED: INFLUENZA QUAD (6MOS+) 2019-20 VAC 0.5 ML SYR IM ONE (13:00)
--- NOTE | 2019-03-31 13:15 | PDOC DISCHARGE SUMMARY ---
Impression - Admit/DC Date/PCP Admission Date/Primary Care Provider: 03/28/19 20:03 Bart CHAPA MD Discharge Date: 03/31/19 - Discharge Diagnosis (1) Acute and chronic respiratory failure with hypercapnia Is this a current diagnosis for this admission?: Yes (2) Acute exacerbation of chronic obstructive pulmonary disease (COPD) Is this a current diagnosis for this admission?: Yes (3) Acute interstitial pneumonia Is this a current diagnosis for this admission?: Yes (4) Hypokalemia Is this a current diagnosis for this admission?: Yes (5) Diabetes mellitus type 2 in obese Is this a current diagnosis for this admission?: Yes (6) GERD (gastroesophageal reflux disease) Is this a current diagnosis for this admission?: Yes (7) Depression Is this a current diagnosis for this admission?: Yes (8) Chronic renal disease, stage 3, moderately decreased glomerular filtration rate (GFR) between 30-59 mL/min/1.73 square meter Is this a current diagnosis for this admission?: Yes - Assessment Summary: 03/30/2019-patient serum creatinine is 1.23 today. At the time of admission it is 1.66. Acute kidney injury most likely secondary to prerenal causes resolved. 6.hypertension Blood pressure today is 118/63. Stable. Plan is to continue the present management. 03/30/2019-patient blood pressure today is 104/60. Stable. Plan is to continue to closely monitor the blood pressures. 7.diabetes mellitus patient's latest blood sugar is 121 with hemoglobin A1c of 7.0. Patient on insulin sliding scale before meals and at bedtime. Dietary consult was provided. Plan is to continue the present management. 03/30/2019-patient's blood sugar this morning is 95 well-controlled. She is off the steroids. Hemoglobin A1c 7.0. Plan is to continue insulin sliding scale before meals and at bedtime. 8.Hypokalemia Patient's serum potassium is 3.8 admission serum potassium is 2.8 hypokalemia is resolved with potassium supplementation. 03/30/2019-serum potassium is 3.5 which is going to be supplemented. 1.acute interstitial pneumonia She came in with 2 weeks history of shortness of breath pulse ox on 2 L nasal cannula this morning is 96%. Patient was started on Zithromax and IV Rocephin. Plan to do the CT chest without contrast today get further information. She is receiving aggressive pulmonary toilet with nebulized Xopenex, Atrovent, Pulmicort, Mucomyst. Also on IV Solu-Medrol. Plan is to discontinue IV Solu- Medrol today and provide supplemental oxygen. 03/30/2019-CT chest without contrast was done no evidence of any pneumonia no evidence of fluid overload is noticed. WBC went up to 14,000 presently on IV Rocephin and IV Zithromax. WBC may be secondary to steroid therapy until yesterday. 03/31/2019-white cell count came down to 12,000 today cultures are negative pulse oxes are within normal range. Patient is going home on levo floxacillin 500 mg p.o. daily. 2.acute on chronic respiratory failure with hypercapnia. Pulse ox today is 96% on 2 L. Patient is not on BiPAP. Comfortable in the bed communicating well. Chest bilateral entry was decreased no wheezing no crepitations. Acute on chronic respiratory failure with hypoxia resolving. 03/30/2019-patient pulse ox today is 93% on 2 L. She is uses 2 L oxygen at home. Plan is to continue the present management acute on chronic respiratory failure with hypercapnia resolving. 10/2018-patient admitted with acute on chronic respiratory failure with hypercapnia hypoxia and hypercapnia resolved patient uses 2 L oxygen at home. Pulse ox is 94 to 96% on 2 L this morning. 3.acute exacerbation of COPD. 4.pt is receiving Atrovent, Pulmicort, Mucomyst. She is also receiving nebulized Xopenex. Chest bilateral entry was decreased no wheezing no crepitations on examination. On oxygen nasal cannula 2 L/min. Will check for the home oxygen needs. 03/30/2019-patient admitted with acute exacerbation of COPD presently prevent, Pulmicort, Mucomyst. Patient is also receiving nebulized Xopenex. On examinati on chest bilateral entry was good no wheezing no crepitations. 03/31/2019-patient admitted with acute exacerbation of COPD she was treated with Pulmicort, Mucomyst and Xopenex. On examination today bilateral it was decreased no wheezing no crepitations. COPD exacerbation is resolved. 5.chronic renal disease stage3 Patient serum creatinine is 1.66 at the time of admission and improved to 1.36 today. Acute kidney injury most likely secondary to prerenal causes resolving. - Additional Information Resuscitation Status: Full Code Discharge Diet: As Tolerated Discharge Activity: Activity As Tolerated Referrals: Bart CHAPA MD [Primary Care Provider] - 04/04/19 9:45 am Prescriptions: Levofloxacin [Levaquin 500 mg Tablet] 500 mg PO DAILY #10 tablet Home Medications: Aspirin [Aspirin 81 mg Chewable Tablet] 81 mg PO DAILY 03/29/19 Atorvastatin Calcium [Lipitor 20 mg Tablet] 20 mg PO DAILY 03/29/19 Calcitriol [Rocaltrol 0.25 mcg Capsule] 0.25 mcg PO MOFR@1000 03/29/19 Cetirizine HCl [Zyrtec 10 mg Tablet] 10 mg PO DAILY 03/29/19 Chlorthalidone [Hygroton 25 mg Tablet] 25 mg PO DAILY 03/29/19 Diltiazem HCl [Tiazac] 420 mg PO DAILY 03/29/19 Escitalopram Oxalate [Lexapro] 20 mg PO DAILY 03/29/19 Guaifenesin [Mucinex Sr 600 mg Tablet.sa] 600 mg PO Q12 03/29/19 Losartan Potassium [Cozaar 100 mg Tablet] 100 mg PO DAILY 03/29/19 Montelukast Sodium [Singulair 10 mg Tablet] 10 mg PO DAILY 03/29/19 Omeprazole 20 mg PO DAILY 03/29/19 Levofloxacin [Levaquin 500 mg Tablet] 500 mg PO DAILY #10 tablet 03/31/19 History of Present Illiness History of Present Illness: DANTE BOND is a 68 year old female Patient will be treated with IV antibiotics utilizing Zithromax and Rocephin administered every 24 hours. She will be treated with an aggressive pulmonary toilet utilizing nebulized Xopenex, Atrovent, Pulmicort and Mucomyst. She will receive a burst dose of IV Solu-Medrol and will also receive supplemental oxygen via nasal cannula and or noninvasive airway pressure devices such as BiPAP as needed. She will be continued on her usual medications for hypertension and diabetes. Before meals and at bedtime Accu-Cheks to be performed and sliding scale insulin will be administered for hyperglycemia, with a hypoglycemic protocol also in place. Patient's potassium will be repleted utilizing IV fluids containing supplemental potassium and oral potassium repletion will be used ongoing. Patient's chronic renal insufficiency will be monitored along with her other medical problems with daily CBCs, metabolic profiles and magnesium levels. A hemoglobin A1c, lipid profile and thyroid profile will be obtained. Patient will use Nubain 5 to 10 mg IV every 3 hours on an as-needed basis for pain using a sliding scale for dosage. She will receive additional support for her gastroesophageal reflux disease by adding metoclopramide and sucralfate administered before meals and at bedtime during the time when she is stressed and receiving steroids. She will be continued on her usual antidepressant therapy once it has been determined by pharmacy and confirmed on the medication reconciliation list. Hospital Course Hospital Course: Was admitted with COPD exacerbation and interstitial pneumonia COPD exacerbation is resolved pneumonia is resolving going home on levo floxacillin 500 mg p.o. daily for 10 days. Physical Exam Vital Signs: Temp Pulse Resp BP Pulse Ox 98 F 77 18 134/59 H 90 L 03/31/19 12:21 03/31/19 12:21 03/31/19 12:21 03/31/19 12:21 03/31/19 12:21 Pulse Oximeter Continuous Start: 03/28/19 20:06 Freq: RTQ4 Status: Active Protocol: Document 03/31/19 12:00 [facility] (Rec: 03/31/19 12:12 [facility] [id number]) Pulse Oximetry Assessment Oxygen Flow Rate (L/min) 3 Oxygen Delivery Method Nasal Cannula Fraction of Inspired Oxygen (FIO2) 32 Equipment Usage Equipment Standby Continuous SpO2 Machine # 4 Intake & Output 03/30/19 03/31/19 04/01/19 06:59 06:59 06:59 Intake Total 4158 2800 340 Output Total 100 3350 300 Balance 4058 -550 40 Weight 107.6 kg 105.9 kg General appearance: PRESENT: no acute distress, cooperative Head exam: PRESENT: atraumatic Eye exam: PRESENT: PERRLA Mouth exam: PRESENT: dry mucosa Teeth exam: PRESENT: poor dentation Neck exam: ABSENT: carotid bruit, JVD, lymphadenopathy, thyromegaly Respiratory exam: PRESENT: clear to auscultation logan. ABSENT: rales, rhonchi, wheezes Pulses: PRESENT: normal dorsalis pedis pul GI/Abdominal exam: PRESENT: normal bowel sounds, soft. ABSENT: distended, guarding, mass, organolmegaly, rebound, tenderness Rectal exam: PRESENT: deferred Extremities exam: PRESENT: full ROM. ABSENT: calf tenderness, clubbing, pedal edema Neurological exam: PRESENT: alert, awake, oriented to person, oriented to place, oriented to time, oriented to situation, CN II-XII grossly intact. ABSENT: motor sensory deficit Psychiatric exam: PRESENT: appropriate affect, normal mood. ABSENT: homicidal ideation, suicidal ideation Results Laboratory Results: WBC 12.9 10^3/uL (4.0-10.5) H 03/31/19 04:19 RBC 3.48 10^6/uL (3.72-5.28) L 03/31/19 04:19 Hgb 9.3 g/dL (12.0-15.5) L 03/31/19 04:19 Hct 29.3 % (36.0-47.0) L 03/31/19 04:19 MCV 84 fl (80-97) 03/31/19 04:19 MCH 26.9 pg (27.0-33.4) L 03/31/19 04:19 MCHC 31.9 g/dL (32.0-36.0) L 03/31/19 04:19 RDW 14.3 % (11.5-14.0) H 03/31/19 04:19 Plt Count 249 10^3/uL (150-450) 03/31/19 04:19 Lymph % (Auto) 17.8 % (13-45) 03/28/19 16:40 [place] % (Auto) 7.2 % (3-13) 03/28/19 16:40 Eos % (Auto) 1.2 % (0-6) 03/28/19 16:40 Baso % (Auto) 0.3 % (0-2) 03/28/19 16:40 Absolute Neuts (auto) 10.4 10^3/uL (1.7-8.2) H 03/28/19 16:40 Absolute Lymphs (auto) 2.5 10^3/uL (0.5-4.7) 03/28/19 16:40 Absolute Monos (auto) 1.0 10^3/uL (0.1-1.4) 03/28/19 16:40 Absolute Eos (auto) 0.2 10^3/uL (0.0-0.6) 03/28/19 16:40 Absolute Basos (auto) 0.0 10^3/uL (0.0-0.2) 03/28/19 16:40 Seg Neutrophils % 73.5 % (42-78) 03/28/19 16:40 Carbonic Acid 1.89 mmol/L (1.05-1.35) H 03/29/19 06:20 HCO3/H2CO3 Ratio 19:1 03/29/19 06:20 ABG pH 7.38 (7.35-7.45) 03/29/19 06:20 ABG pCO2 62.9 mmHg (35-45) H 03/29/19 06:20 ABG pO2 72.0 mmHg (80-100) L 03/29/19 06:20 ABG HCO3 36.7 mmol/L (20-24) H 03/29/19 06:20 ABG Total CO2 38.6 mmol/L (21-25) H 03/29/19 06:20 ABG O2 Saturation 93.8 % (94-98) L 03/29/19 06:20 ABG Base Excess 9.8 mmol/L 03/29/19 06:20 FiO2 3L 03/29/19 06:20 Sodium 142.6 mmol/L (137-145) 03/31/19 04:19 Potassium 3.7 mmol/L (3.6-5.0) 03/31/19 04:19 Chloride 100 mmol/L (98-107) 03/31/19 04:19 Carbon Dioxide 37 mmol/L (22-30) H 03/31/19 04:19 Anion Gap 6 (5-19) 03/31/19 04:19 BUN 21 mg/dL (7-20) H 03/31/19 04:19 Creatinine 1.17 mg/dL (0.52-1.25) 03/31/19 04:19 Est GFR ( Amer) 55 (>60) L 03/31/19 04:19 Est GFR (MDRD) Non-Af 46 (>60) L 03/31/19 04:19 Glucose 57 mg/dL (75-110) L 03/31/19 04:19 POC Glucose 74 mg/dL (70-110) 03/31/19 08:18 Hemoglobin A1c % 7.0 % (4.7-6.0) H 03/29/19 06:33 Lactic Acid 0.9 mmol/L (0.7-2.1) 03/29/19 06:33 Calcium 8.4 mg/dL (8.4-10.2) 03/31/19 04:19 Magnesium 1.5 mg/dL (1.6-2.3) L 03/31/19 04:19 Total Bilirubin 0.5 mg/dL (0.2-1.3) 03/28/19 16:40 Direct Bilirubin 0.4 mg/dL (0.0-0.4) 03/28/19 16:40 Neonat Total Bilirubin Not Reportable 03/28/19 16:40 Neonat Direct Bilirubin Not Reportable 03/28/19 16:40 Neonat Indirect Bili Not Reportable 03/28/19 16:40 AST 29 U/L (14-36) 03/28/19 16:40 ALT 27 U/L (<35) 03/28/19 16:40 Alkaline Phosphatase 151 U/L (38-126) H 03/28/19 16:40 Creatine Kinase 110 U/L (30-135) 03/29/19 07:56 CK-MB (CK-2) 1.99 ng/mL (<4.55) 03/29/19 07:56 Troponin I < 0.012 ng/mL 03/29/19 07:56 NT-Pro-B Natriuret Pep 177 pg/mL (5-900) 03/28/19 21:23 Total Protein 6.7 g/dL (6.3-8.2) 03/28/19 16:40 Albumin 3.4 g/dL (3.5-5.0) L 03/28/19 16:40 Triglycerides 85 mg/dL (<150) 03/29/19 06:33 Cholesterol 108.19 mg/dL (0-200) 03/29/19 06:33 LDL Cholesterol Direct 67 mg/dL (<100) 03/29/19 06:33 VLDL Cholesterol 17.0 mg/dL (10-31) 03/29/19 06:33 HDL Cholesterol 28 mg/dL (>40) L 03/29/19 06:33 TSH 1.14 uIU/mL (0.47-4.68) 03/29/19 06:33 Free T4 1.45 ng/dL (0.78-2.19) 03/28/19 16:40 Free T3 pg/mL 3.26 pg/mL (2.77-5.27) 03/28/19 16:40 Urine Color YELLOW 03/29/19 19:37 Urine Appearance SLIGHTLY-CLOUDY 03/29/19 19:37 Urine pH 5.0 (5.0-9.0) 03/29/19 19:37 Ur Specific [place] 1.009 03/29/19 19:37 Urine Protein NEGATIVE mg/dL (NEGATIVE) 03/29/19 19:37 Urine Glucose (UA) NEGATIVE mg/dL (NEGATIVE) 03/29/19 19:37 Urine Ketones NEGATIVE mg/dL (NEGATIVE) 03/29/19 19:37 Urine Blood NEGATIVE (NEGATIVE) 03/29/19 19:37 Urine Nitrite NEGATIVE (NEGATIVE) 03/29/19 19:37 Urine Bilirubin NEGATIVE (NEGATIVE) 03/29/19 19:37 Urine Urobilinogen NEGATIVE mg/dL (<2.0) 03/29/19 19:37 Ur Leukocyte Esterase NEGATIVE (NEGATIVE) 03/29/19 19:37 Urine WBC (Auto) 1 /HPF 03/29/19 19:37 Urine RBC (Auto) 1 /HPF 03/29/19 19:37 U Hyaline Cast (Auto) 1 /LPF 03/29/19 19:37 Urine Bacteria (Auto) TRACE /HPF 03/29/19 19:37 Squamous Epi Cells Auto 5 /HPF 03/29/19 19:37 Urine Mucus (Auto) RARE /LPF 03/29/19 19:37 Urine Ascorbic Acid NEGATIVE (NEGATIVE) 03/29/19 19:37 03/28/19 03/28/19 03/29/19 16:40 21:23 01:54 CK-MB (CK-2) 1.92 1.97 Troponin I < 0.012 < 0.012 < 0.012 NT-Pro-B Natriuret Pep 164 177 03/29/19 07:56 CK-MB (CK-2) 1.99 Troponin I < 0.012 NT-Pro-B Natriuret Pep Impressions: Chest X-Ray 03/28/19 16:19 IMPRESSION: Probable vascular congestion in the setting of COPD. Interstitial pneumonitis is thought to be less likely. Chest CT 03/29/19 00:00 IMPRESSION: Obstructive lung disease Chronic increased interstitial markings No acute infiltrates. No pleural effusion Plan Plan of Treatment: She was given a prescription for levo floxacillin 500 mg p.o. daily she was advi sed to continue 2 L oxygen at home. She was strongly advised to follow-up with primary care physician in 5 to 7 days. Time Spent: Greater than 30 Minutes Stroke Is this a Stroke Patient?: No Acute Heart Failure - Is this a Heart Failure Patient?: No
== END 2019-03-31 13:06 | disposition home or self-care (01) | DRG 189 ==
LOC: ER 16:01 → EH 20:03 → 5 22:39
PROVIDERS: ADMIT Emergency Medicine; ATTEND Emergency Medicine
PROC: 3E0234Z Introduction of Serum, Toxoid and Vaccine into Muscle, Percutaneous Approach (ICD-10-PCS; principal; 2019-03-31)
DX: J96.22 Acute and chronic respiratory failure with hypercapnia (principal); J84.9 Interstitial pulmonary disease, unspecified; J44.1 Chronic obstructive pulmonary disease with (acute) exacerbation; N17.9 Acute kidney failure, unspecified; E11.22 Type 2 diabetes mellitus with diabetic chronic kidney disease; I12.9 Hypertensive chronic kidney disease with stage 1 through stage 4 chronic kidney disease, or unspecified chronic kidney disease; N18.3 Chronic kidney disease, stage 3 (moderate); K21.9 Gastro-esophageal reflux disease without esophagitis; E87.6 Hypokalemia; I25.10 Atherosclerotic heart disease of native coronary artery without angina pectoris; F32.9 Major depressive disorder, single episode, unspecified; Z99.81 Dependence on supplemental oxygen; Z79.84 Long term (current) use of oral hypoglycemic drugs; Z79.82 Long term (current) use of aspirin; Z79.51 Long term (current) use of inhaled steroids; Z79.52 Long term (current) use of systemic steroids; Z79.899 Other long term (current) drug therapy; Z23 Encounter for immunization
CPT/HCPCS: 36415; 36600; 71045; 71250; 80048; 80061; 81001; 82550; 82553; 82803; 82962; 83036; 83605; 83735; 83880; 83970; 84100; 84439; 84443; 84481; 84484; 85027; 87040; 87070; 87077; 87086; 87186; 87205; 90686; 93005; 93010; 94640; 94660; 94762; 96361; 96365; 96367; 99291; J0456; J0696; J1644; J1815; J2920; J3475; J3480; J3490; J7060; J7614; J7620

== ENCOUNTER → 2019-03-28 | Outpatient (CLI) | payer MEDICARE, OTHER ==
[2019-03-28 11:54] LABS: HEMATOCRIT 33.9 % (36.0-47.0); HEMOGLOBIN 10.6 g/dL (12.0-15.5); MEAN CORPUSCULAR HEMOGLOBIN 26.6 pg (27.0-33.4); MEAN CORPUSCULAR HGB CONC 31.2 g/dL (32.0-36.0); MEAN CORPUSCULAR VOLUME 86 fl (80-97); PLATELET COUNT 247 10^3/uL (150-450); RED BLOOD COUNT 3.97 10^6/uL (3.72-5.28); RED CELL DISTRIBUTION WIDTH 14.3 % (11.5-14.0); WHITE BLOOD COUNT 12.3 10^3/uL (4.0-10.5)
[2019-03-28 12:16] LABS: ANION GAP 11 (5-19); BLOOD UREA NITROGEN 24 mg/dL (7-20); CALCIUM 8.9 mg/dL (8.4-10.2); CARBON DIOXIDE 36 mmol/L (22-30); CHLORIDE 96 mmol/L (98-107); GLUCOSE 125 mg/dL (75-110); PHOSPHORUS 2.9 mg/dL (2.5-4.5); POTASSIUM 3.1 mmol/L (3.6-5.0)
== END ==
LOC: OD 11:31
PROVIDERS: ATTEND Internal Medicine Nephrology
DX: I12.9 Hypertensive chronic kidney disease with stage 1 through stage 4 chronic kidney disease, or unspecified chronic kidney disease (principal); N18.3 Chronic kidney disease, stage 3 (moderate); E11.22 Type 2 diabetes mellitus with diabetic chronic kidney disease; E87.5 Hyperkalemia
CPT/HCPCS: 36415; 80048; 83735; 83970; 84100; 85027

== ENCOUNTER → 2019-05-02 | Outpatient (CLI) | payer MEDICARE, OTHER ==
[2019-05-02 16:44] LABS: ABSOLUTE BASOPHILS # (AUTO) 0.1 10^3/uL (0.0-0.2); ABSOLUTE EOSINOPHILS # (AUTO) 0.4 10^3/uL (0.0-0.6); ABSOLUTE MONOCYTES (AUTO) 0.6 10^3/uL (0.1-1.4); ABSOLUTE NEUT (AUTO) 5.5 10^3/uL (1.7-8.2); BASOPHILS % (AUTO) 0.6 % (0-2); EOSINOPHILS % (AUTO) 4.5 % (0-6); HEMATOCRIT 38.3 % (36.0-47.0); HEMOGLOBIN 12.1 g/dL (12.0-15.5); LYMPHOCYTES % (AUTO) 31.1 % (13-45); MEAN CORPUSCULAR HEMOGLOBIN 26.9 pg (27.0-33.4); MEAN CORPUSCULAR HGB CONC 31.5 g/dL (32.0-36.0); MEAN CORPUSCULAR VOLUME 86 fl (80-97); MONOCYTES % (AUTO) 6.7 % (3-13); PLATELET COUNT 152 10^3/uL (150-450); RED BLOOD COUNT 4.48 10^6/uL (3.72-5.28); RED CELL DISTRIBUTION WIDTH 14.8 % (11.5-14.0); SEGMENTED NEUTROPHILS % (AUTO) 57.1 % (42-78); TOTAL CELLS COUNTED % (AUTO) 100 %; WHITE BLOOD COUNT 9.7 10^3/uL (4.0-10.5)
[2019-05-02 17:03] LABS: ALKALINE PHOSPHATASE 109 U/L (38-126); ANION GAP 9 (5-19); ASPARTATE AMINO TRANSFERASE 19 U/L (14-36); BILIRUBIN,DIRECT 0.2 mg/dL (0.0-0.4); BILIRUBIN,TOTAL 0.4 mg/dL (0.2-1.3); BLOOD UREA NITROGEN 18 mg/dL (7-20); CALCIUM 9.9 mg/dL (8.4-10.2); CARBON DIOXIDE 32 mmol/L (22-30); CHLORIDE 103 mmol/L (98-107); GLUCOSE 93 mg/dL (75-110); POTASSIUM 5.1 mmol/L (3.6-5.0); TOTAL PROTEIN 7.3 g/dL (6.3-8.2)
[2019-05-02 17:49] LABS: APPEARANCE,URINE CLEAR; BILIRUBIN,URINE NEGATIVE (NEGATIVE); COLOR,URINE STRAW; GLUCOSE, URINE NEGATIVE (NEGATIVE); KETONES,URINE NEGATIVE (NEGATIVE); LEUKOCYTE ESTERASE,URINE NEGATIVE (NEGATIVE); NITRITE,URINE NEGATIVE (NEGATIVE); PROTEIN,URINE NEGATIVE (NEGATIVE); URINE SPECIFIC GRAVITY 1.005; UROBILINOGEN,URINE NEGATIVE mg/dL (<2.0)
== END ==
LOC: OD 16:10
PROVIDERS: ATTEND Internal Medicine Nephrology
DX: E11.22 Type 2 diabetes mellitus with diabetic chronic kidney disease (principal); I13.0 Hypertensive heart and chronic kidney disease with heart failure and stage 1 through stage 4 chronic kidney disease, or unspecified chronic kidney disease; N18.3 Chronic kidney disease, stage 3 (moderate); I50.9 Heart failure, unspecified; E83.42 Hypomagnesemia
CPT/HCPCS: 36415; 80053; 81001; 82043; 82306; 82570; 83735; 83970; 85025

== ENCOUNTER → 2019-07-04 | Outpatient (CLI) | payer MEDICARE, OTHER ==
--- NOTE | 2019-07-04 16:49 | XCELERA REPORT ---
[address] [address] Transthoracic Echocardiogram Report Name: DANTE BOND Age: 69 yrs Gender: Female : 1950 Patient Status: Outpatient Patient Location: RAD Study Date: 07/04/2019 01:25 PM Height: 66 in Weight: 230 lb BSA: 2.1 m2 Procedure: A two-dimensional transthoracic echocardiogram with color flow and Doppler was performed. Study Quality: Fair. Reason For Study: SOB History: Shortness of breath. Ordering Physician: MARY PENN Performed By: Margarito Dobbs Interpretation Summary The left ventricle is normal in size. There is normal left ventricular wall thickness. LV EF is > than 65% Left ventricular systolic function is normal. Doppler measurements suggest impaired left ventricular relaxation, which is associated with grade I/IV or mild diastolic dysfunction The left ventricular wall motion is normal. There is no thrombus. No defenite ASD ,VSD , or PFO seen. The right ventricle is grossly normal size. The right ventricle is not well visualized secondary to technical limitations The right atrium is normal. The left atrial size is normal. There is no evidence of mitral valve prolapse. There is no vegetation seen on the mitral valve. There is no mitral valve stenosis. There is no mitral regurgitation noted. There is no aortic valvular vegetation. There is no aortic valve stenosis There is no LVOT obstruction. No aortic regurgitation is present. There is no tricuspid stenosis. There is a mild amount of tricuspid regurgitation No significant pumonary hypertension.RVSP is 26 to 31 mm of Hg , with RA mean of 5 to 10. There is no pulmonic valvular stenosis. There is a trace amount of pulmonic regurgitation The aortic root is normal size. The inferior vena cava appeared normal and decreased > 50% with respiration (RAP 5-10 mmHg) There is no pericardial effusion. MMode/2D Measurements & Calculations RVDd: 3.4 cm LVIDd: 4.0 cm FS: 40.1 % Ao root diam: 3.4 cm IVSd: 1.0 cm LVIDs: 2.4 cm EDV(Teich): 69.4 ml Ao root area: 9.0 cm2 LVPWd: 0.93 cm ESV(Teich): 19.9 ml LA dimension: 2.9 cm EF(Teich): 71.3 % Doppler Measurements & Calculations MV E max sabina: MV P1/2t max sabina: Ao V2 max: LV V1 max P.3 cm/sec 97.7 cm/sec 176.8 cm/sec 6.8 mmHg MV A max sabina: MV P1/2t: 66.0 msec Ao max PG: LV V1 max: 109.1 cm/sec MVA(P1/2t): 3.3 cm2 12.5 mmHg 130.3 cm/sec MV E/A: 0.86 MV dec slope: 433.7 cm/sec2 MV dec time: 0.27 sec PA V2 max: TR max sabina: MV P1/2t-pr_phl: 138.2 cm/sec 227.9 cm/sec 66.0 msec PA max P.6 mmHgTR max P.8 mmHg Left Ventricle The left ventricle is normal in size. There is normal left ventricular wall thickness. LV EF is > than 65%. Left ventricular systolic function is normal. Doppler measurements suggest impaired left ventricular relaxation, which is associated with grade I/IV or mild diastolic dysfunction. The left ventricular wall motion is normal. There is no thrombus. No defenite ASD ,VSD , or PFO seen. Right Ventricle The right ventricle is grossly normal size. The right ventricle is not well visualized secondary to technical limitations. Atria The right atrium is normal. The left atrial size is normal. Mitral Valve There is no evidence of mitral valve prolapse. There is no vegetation seen on the mitral valve. There is no mitral valve stenosis. There is no mitral regurgitation noted. Aortic Valve There is no aortic valvular vegetation. There is no aortic valve stenosis. There is no LVOT obstruction. No aortic regurgitation is present. Tricuspid Valve There is no tricuspid stenosis. There is a mild amount of tricuspid regurgitation. No significant pumonary hypertension.RVSP is 26 to 31 mm of Hg , with RA mean of 5 to 10. Pulmonic Valve There is no pulmonic valvular stenosis. There is a trace amount of pulmonic regurgitation. Great Vessels The aortic root is normal size. The inferior vena cava appeared normal and decreased > 50% with respiration (RAP 5-10 mmHg). Effusions There is no pericardial effusion. : MARY PENN Lakshmi
== END ==
LOC: RAD 12:15
PROVIDERS: ATTEND Specialist
DX: R06.02 Shortness of breath (principal)
CPT/HCPCS: 93306